=== PATIENT | male | born 1960 | race Caucasian/White ===

== ENCOUNTER 2018-02-08 12:36 | Inpatient (IN) ==
[2018-02-08 14:05] LABS: Baso # (Auto) 0.1 th/mm3 (0.0-0.2); Baso % (Auto) 0.5 % (0.0-2.0); Eos % (Auto) 0.3 % (0.0-4.0); Hematocrit 50.5 % (39.0-51.0); Hemoglobin 16.7 gm/dL (13.0-17.0); Lymph % (Auto) 7.8 % (9.0-44.0); Mean Corpuscular HGB Conc 33.2 % (32.0-36.0); Mean Corpuscular Hemoglobin 30.9 pg (27.0-34.0); Mean Corpuscular Volume 93.2 fL (80.0-100.0); Mean Platelet Volume 10.7 fL (7.0-11.0); Mono # (Auto) 1.6 th/mm3 (0.0-0.9); Mono % (Auto) 12.1 % (0.0-8.0); Neut # (Auto) 10.2 th/mm3 (1.8-7.7); Neut % (Auto) 79.3 % (16.0-70.0); Platelet Count 227 th/mm3 (150-450); Red Blood Count 5.42 mil/mm3 (4.50-5.90); Red Cell Distribution Width 13.7 % (11.6-17.2); White Blood Count 12.9 th/mm3 (4.0-11.0)
--- NOTE | 2018-02-08 14:15 | XR ---
EXAM DATE: 02/08/2018 2:02 PM EST AGE/SEX: 58 years / Male INDICATIONS: COPD. Short of breath. CLINICAL DATA: This is the patient's initial encounter. Patient reports that signs and symptoms have been present for 1 week and indicates a pain score of 0/10. MEDICAL/SURGICAL HISTORY: . Chronic obstructive pulmonary disease. Hypertension. Congestive hea rt failure. None. [place] [facility] [place] . FINDINGS: Hyperinflation of the lungs is noted consistent with emphysematous changes. No acute focal pulmonary infiltrate or pulmonary vascular congestion is noted. The heart and mediastinal structures are normal . CONCLUSION: 1. Stable hyperinflation of the lungs consistent with emphysematous changes. 2. No acute cardiopulmonary disease. Electronically signed by: José Miguel Caceres MD 02/08/2018 2:13 PM EST
--- NOTE | 2018-02-08 14:23 | ED ---
HPI General Chief Complaint: Shortness of Breath/Dyspnea Stated Complaint: Respitory Time Seen by Provider: 02/08/18 12:47 Source: patient Mode of arrival: EMS Limitations: no limitations History of Present Illness Mr Curtis is a 58 year old male who presents to the ED via [facility] for worsening SOB and a productive cough for 1 week. The patient is HIV+ diagnosed 20 years ago but does not know his CD4 count or viral load. He states that he has COPD and is always slightly SOB but this week he has used his nebulizer TID rather than qD and it has not been relieving his symptoms. The cough produces a thick yellow sputum that is abnormal for the patient, and coughing fits increase his SOB. He states that he does have occasional wheezing and intermittent left sided chest pain over his last 3 ribs that is worse with palpation. He states he took his temperature 2 days ago and it was 101 degrees F orally, and on the same day he states that he hallucinated and saw lights and waves [place] the [place]. He denies all drug use except for marijuana 5-6 times per week. He states he hallucinated once before many years ago and he was ill during that episode as well. The patient denies hemoptysis, headache, syncope, dizziness, rhinorrhea, sneezing, diarrhea, constipation, or abdominal pain. His PMH is significant for HIV, COPD, CVA, and an unknown cardiac problem. He smokes 1 pack of cigarettes per day and denies alcohol use. Pain is 3 out of 10 with deep breaths. MD Complaint: Reports shortness of breath and cough Onset (ago): day(s) Related Data Home Medications Medication Instructions Recorded Confirmed albuterol sulfate [Ventolin HFA] 2 puff INHALATION Q4-6H PRN 02/08/18 02/08/18 amoxicillin 500 mg PO TID 02/08/18 baclofen 20 mg PO DAILY 02/08/18 02/08/18 budesonide-formoterol [Symbicort] 2 puff INHALATION BID 02/08/18 02/08/18 hydrocodone-acetaminophen [[place]] 1 tab PO BID PRN 02/08/18 02/08/18 montelukast 10 mg PO QPM 02/08/18 02/08/18 Allergies Allergy/AdvReac Type Severity Reaction Status Date / Time penicillin G Allergy Unknown Nausea/Vomi Verified 02/08/18 12:52 ting Review of Systems ROS: all other systems reviewed are negative [facility] Medical History Medical History COPD (chronic obstructive pulmonary disease) (Acute) CVA (cerebral vascular accident) (Acute) HIV (human immunodeficiency virus infection) (Acute) Tobacco abuse (Acute) Family History Family History Other Family history not known due to adoption Social History Social History Substance History: Active Abuse Smoking Status: Current every day smoker Tobacco Type: Cigarettes How Often Do You Have a Drink Containing Alcohol: Never Recent Travel in [facility] within the Last 8 Weeks: No Recent Out of Country Travel within the Last 8 Weeks: No Substance Abuse Detail Marijuana: Substance Use Status: Active Route Used Substance Abuse: Inhalation Immunization History Tetanus Immunization: Unsure Exam Narrative Exam Narrative: GENERAL: Patient is a very thin male who appears in moderate respiratory distress. SKIN: Warm and dry. HEAD: Atraumatic. Normocephalic. EYES: Pupils equal and round. No scleral icterus. No injection or drainage. ENT: No nasal bleeding or discharge. White film covering the tongue and buccal mucosa that was not able to be removed via tongue depressor. NECK: Trachea midline. No JVD. CARDIOVASCULAR: Tachycardic and regular rhythm. Pain with palpation over the left side of the chest, specifically over the last 3 ribs. RESPIRATORY: No accessory muscle use. Rhonchi and rales heard bilaterally. Diminished lung sounds on the left. GASTROINTESTINAL: Abdomen soft, non-tender, nondistended. Hepatic and splenic margins not palpable. MUSCULOSKELETAL: Extremities without clubbing, cyanosis, or edema. No obvious deformities. Full ROM in upper and lower extremities. 2+ pulses in upper and lower extremities bilaterally. NEUROLOGICAL: Awake and alert. No obvious cranial nerve deficits. Motor grossly within normal limits. Five out of 5 muscle strength in the arms and legs. Normal speech. PSYCHIATRIC: Appropriate mood and affect; insight and judgment normal. Course Initial Documented Vital Signs Pulse Rate 82 02/08/18 12:43 Respiratory Rate 28 H 02/08/18 12:43 Pulse Oximetry 100 02/08/18 12:43 Last Documented Vital Signs Temperature 98.0 F 02/08/18 12:54 Pulse Rate 109 H 02/08/18 17:15 Respiratory Rate 30 H 02/08/18 17:01 Blood Pressure 109/89 02/08/18 16:06 Pulse Oximetry 100 02/08/18 17:01 Medical Decision Making ASHOK Attestation ASHOK supervised visit: Yes Attestation: I, Dr. Coker, have reviewed the advance practice practitioner's documentation and am in agreement, met with the patient face to face, made the diagnosis, and the medical decision making was done by me. *My assessment and Findings: The patient was receiving a breathing treatment when I saw him. He had fair air movement. See Leigh Hamilton note for a more detailed H&P, final diagnosis and disposition MDM Narrative Medical decision making narrative: 58-year-old male that presents to the ED for evaluation of shortness of breath. Patient was properly examined and was found to have signs and symptoms consistent appears to be likely COPD exacerbation with possible pneumonia. He has a significant history of HIV and unclear as to why he does not take any medications for it. He does not know his CD4 count or his viral count but per patient his primary care doctor does note that he has HIV. He does have a significant history of COPD. He also appears to have oral candidiasis. Labs and imaging were ordered. Patient was given 3 breathing treatments and Solu-Medrol as well as Ativan as patient started to become very anxious. Labs and imaging were essentially unremarkable other than what appears to be positive troponin, positive d-dimer. CTA was ordered and CTA did not show any sign of PE but did show what appears to be early pneumonia. Not better. Still sounds very wheezy at this time patient was started on ceftriaxone and azithromycin IV. Recommendation at this time is admission as patient still whezzing. Discussed case with Dr Winkler who agrees to admission to her service. Medical Screen Exam Complete: Yes Emergency Medical Condition: Yes Differential Diagnosis Differential Diagnosis: COPD exacerbation vs pneumonia vs oral candidiasis vs URI vs PE vs ACS Medical Records Medical records reviewed: Yes I reviewed the patient's medical records. Lab Data Lab results reviewed: Yes I reviewed the patient's lab results. Result diagrams: 02/08/18 13:27 02/08/18 13:27 Lab Results 02/08/18 02/08/18 02/08/18 Range/Units 13:27 13:27 13:27 WBC 12.9 H (4.0-11.0) th/mm3 RBC 5.42 (4.50-5.90) mil/mm3 Hgb 16.7 (13.0-17.0) gm/dL Hct 50.5 (39.0-51.0) % MCV 93.2 (80.0-100.0) fL MCH 30.9 (27.0-34.0) pg MCHC 33.2 (32.0-36.0) % RDW 13.7 (11.6-17.2) % Plt Count 227 (150-450) th/mm3 MPV 10.7 (7.0-11.0) fL Neut % (Auto) 79.3 H (16.0-70.0) % Lymph % (Auto) 7.8 L (9.0-44.0) % [place] % (Auto) 12.1 H (0.0-8.0) % Eos % (Auto) 0.3 (0.0-4.0) % Baso % (Auto) 0.5 (0.0-2.0) % Neut # (Auto) 10.2 H (1.8-7.7) th/mm3 Lymph # (Auto) 1.0 (1.0-4.8) th/mm3 [place] # (Auto) 1.6 H (0.0-0.9) th/mm3 Eos # (Auto) 0.0 (0.0-0.4) th/mm3 Baso # (Auto) 0.1 (0.0-0.2) th/mm3 WBC Differential . Differential Comment Auto diff final D-Dimer Quant (PE/DVT) (0.00-0.50) mg/L FEU Puncture Site Patient Temperature O2 Saturation (90-100) % ABG pH (7.380-7.420) ABG pCO2 (38-42) mmHg ABG pO2 (61-120) mmHg ABG HCO3 (22-26) mmol/L ABG O2 Content (12.0-20.0) Vol % ABG Base Excess (-2-2) mmol/L ABG Methemoglobin (0-2) % Noe Test Hemoglobin (12.0-16.0) G/DL Carboxyhemoglobin (0-4) % O2 Delivery Device Liter Flow L/M Critical Value Sodium 137 (136-145) meq/L Potassium 4.1 (3.5-5.1) meq/L Chloride 100 (98-107) meq/L Carbon Dioxide 27.4 (21.0-32.0) meq/L Anion Gap 10 (5-15) meq/L BUN 16 (7-18) mg/dL Creatinine 0.73 (0.60-1.30) mg/dL Estimated GFR Greater than 89 (>89) mL/min Random Glucose 92 (74-106) mg/dL Lactic Acid 1.9 (0.4-2.0) mmol/L Calcium 7.8 L (8.5-10.1) mg/dL Magnesium 2.1 (1.5-2.5) mg/dL Total Bilirubin 0.8 (0.2-1.0) mg/dL AST 57 H (15-37) U/L ALT 33 (12-78) U/L Alkaline Phosphatase 104 (45-117) U/L Troponin I 0.06 H (0.02-0.05) ng/mL B-Natriuretic Peptide (0-100) pg/mL Total Protein 7.1 (6.4-8.2) g/dL Albumin 3.1 L (3.4-5.0) g/dL 02/08/18 02/08/18 02/08/18 Range/Units 13:27 14:00 16:30 WBC (4.0-11.0) th/mm3 RBC (4.50-5.90) mil/mm3 Hgb (13.0-17.0) gm/dL Hct (39.0-51.0) % MCV (80.0-100.0) fL MCH (27.0-34.0) pg MCHC (32.0-36.0) % RDW (11.6-17.2) % Plt Count (150-450) th/mm3 MPV (7.0-11.0) fL Neut % (Auto) (16.0-70.0) % Lymph % (Auto) (9.0-44.0) % [place] % (Auto) (0.0-8.0) % Eos % (Auto) (0.0-4.0) % Baso % (Auto) (0.0-2.0) % Neut # (Auto) (1.8-7.7) th/mm3 Lymph # (Auto) (1.0-4.8) th/mm3 [place] # (Auto) (0.0-0.9) th/mm3 Eos # (Auto) (0.0-0.4) th/mm3 Baso # (Auto) (0.0-0.2) th/mm3 WBC Differential Differential Comment D-Dimer Quant (PE/DVT) 0.80 H (0.00-0.50) mg/L FEU Puncture Site Patient Temperature O2 Saturation (90-100) % ABG pH (7.380-7.420) ABG pCO2 (38-42) mmHg ABG pO2 (61-120) mmHg ABG HCO3 (22-26) mmol/L ABG O2 Content (12.0-20.0) Vol % ABG Base Excess (-2-2) mmol/L ABG Methemoglobin (0-2) % Noe Test Hemoglobin (12.0-16.0) G/DL Carboxyhemoglobin (0-4) % O2 Delivery Device Liter Flow L/M Critical Value Sodium (136-145) meq/L Potassium (3.5-5.1) meq/L Chloride (98-107) meq/L Carbon Dioxide (21.0-32.0) meq/L Anion Gap (5-15) meq/L BUN (7-18) mg/dL Creatinine (0.60-1.30) mg/dL Estimated GFR (>89) mL/min Random Glucose (74-106) mg/dL Lactic Acid (0.4-2.0) mmol/L Calcium (8.5-10.1) mg/dL Magnesium (1.5-2.5) mg/dL Total Bilirubin (0.2-1.0) mg/dL AST (15-37) U/L ALT (12-78) U/L Alkaline Phosphatase (45-117) U/L Troponin I 0.07 H (0.02-0.05) ng/mL B-Natriuretic Peptide 45 (0-100) pg/mL Total Protein (6.4-8.2) g/dL Albumin (3.4-5.0) g/dL 02/08/18 Range/Units 16:44 WBC (4.0-11.0) th/mm3 RBC (4.50-5.90) mil/mm3 Hgb (13.0-17.0) gm/dL Hct (39.0-51.0) % MCV (80.0-100.0) fL MCH (27.0-34.0) pg MCHC (32.0-36.0) % RDW (11.6-17.2) % Plt Count (150-450) th/mm3 MPV (7.0-11.0) fL Neut % (Auto) (16.0-70.0) % Lymph % (Auto) (9.0-44.0) % [place] % (Auto) (0.0-8.0) % Eos % (Auto) (0.0-4.0) % Baso % (Auto) (0.0-2.0) % Neut # (Auto) (1.8-7.7) th/mm3 Lymph # (Auto) (1.0-4.8) th/mm3 [place] # (Auto) (0.0-0.9) th/mm3 Eos # (Auto) (0.0-0.4) th/mm3 Baso # (Auto) (0.0-0.2) th/mm3 WBC Differential Differential Comment D-Dimer Quant (PE/DVT) (0.00-0.50) mg/L FEU Puncture Site Right radial Patient Temperature 98.6 O2 Saturation 94 (90-100) % ABG pH 7.30 L (7.380-7.420) ABG pCO2 58 H* (38-42) mmHg ABG pO2 98 (61-120) mmHg ABG HCO3 28 H (22-26) mmol/L ABG O2 Content 21.7 H (12.0-20.0) Vol % ABG Base Excess 2.3 H (-2-2) mmol/L ABG Methemoglobin 0.5 (0-2) % Noe Test Present Hemoglobin 16.4 H (12.0-16.0) G/DL Carboxyhemoglobin 2.3 (0-4) % O2 Delivery Device Nasal cannula Liter Flow 4.00 L/M Critical Value Yes Sodium (136-145) meq/L Potassium (3.5-5.1) meq/L Chloride (98-107) meq/L Carbon Dioxide (21.0-32.0) meq/L Anion Gap (5-15) meq/L BUN (7-18) mg/dL Creatinine (0.60-1.30) mg/dL Estimated GFR (>89) mL/min Random Glucose (74-106) mg/dL Lactic Acid (0.4-2.0) mmol/L Calcium (8.5-10.1) mg/dL Magnesium (1.5-2.5) mg/dL Total Bilirubin (0.2-1.0) mg/dL AST (15-37) U/L ALT (12-78) U/L Alkaline Phosphatase (45-117) U/L Troponin I (0.02-0.05) ng/mL B-Natriuretic Peptide (0-100) pg/mL Total Protein (6.4-8.2) g/dL Albumin (3.4-5.0) g/dL Imaging Data Attestation: I personally reviewed and interpreted this imaging study as follows : Radiologist's impression: Chest X-Ray 02/08/18 13:09 CONCLUSION: 1. Stable hyperinflation of the lungs consistent with emphysematous changes. 2. No acute cardiopulmonary disease. Chest CTA 02/08/18 14:32 CONCLUSION: 1. No evidence of pulmonary embolism. 2. Minimal focal infiltrate within the lingula of the left upper lobe consistent with possible developing pneumonia. Clinical correlation is recommended. 3. Extensive emphysematous changes throughout both lungs. 4. Coronary artery calcifications. ECG Data Attestation: I personally reviewed and interpreted this ECG as follows: Interpretation: EKG shows sinus tachycardia rhythm with no sign of acute ischemia read by me and attending. Discharge Plan Discharge Disposition Patient Disposition: 30 Still Patient Discharge Details Diagnosis: Pneumonia, COPD exacerbation, HIV (human immunodeficiency virus infection), Nedra infection, oral Physicians Team ED Provider: Mariya Coker ED Midlevel Provider: Esteban Escalona Primary Care Provider: Primary Care Celsa Goldstein Attending Provider: Michaelle Etienne Status ED Status: Admitted Observation Patient
[2018-02-08 14:28] LABS: Alanine Aminotransferase 33 U/L (12-78); Alkaline Phosphatase 104 U/L (45-117); Total Protein 7.1 g/dL (6.4-8.2); Troponin I 0.06 ng/mL (0.02-0.05)
[2018-02-08 14:30] LABS: Albumin 3.1 g/dL (3.4-5.0); Anion Gap 10 meq/L (5-15); Aspartate Aminotransferase 57 U/L (15-37); Blood Urea Nitrogen 16 mg/dL (7-18); Calcium 7.8 mg/dL (8.5-10.1); Carbon Dioxide 27.4 meq/L (21.0-32.0); Chloride 100 meq/L (98-107); Glomerular Filtration Rate Greater Than 89 mL/min (>89); Glucose,Random 92 mg/dL (74-106); Magnesium 2.1 mg/dL (1.5-2.5); Sodium 137 meq/L (136-145)
[2018-02-08 14:32] LABS: Potassium 4.1 meq/L (3.5-5.1)
--- NOTE | 2018-02-08 16:07 | CT ---
EXAM DATE: 02/08/2018 3:59 PM EST AGE/SEX: 58 years / Male INDICATIONS: Shortness of breath. CLINICAL DATA: This is the patient's initial encounter. Patient reports that signs and symptoms have been present for 1 day and indicates a pain score of 0/10. MEDICAL/SURGICAL HISTORY: Chronic obstructive pulmonary disease. Stroke. HIV. None. RADIATION DOSE: 6.15 CTDI (mGy) COMPARISON: [facility] – [place], 05/14/2014. . TECHNIQUE: Volumetric scanning was performed using a multi-row detector CT scanner during bolus infu steve of 70 ml Omnipaque 350 (iohexol) nonionic water-soluble contrast as a single exam dose. The edith a was post processed with a variety of visualization algorithms including full volume maximum intensi ty projection and sliding thin slab reformation. Using automated exposure control and adjustment of t he mA and/or kV according to patient size, radiation dose was kept as low as reasonably achievable to obtain optimal diagnostic quality images. DICOM format image data is available electronically for r eview and comparison. FINDINGS: Pulmonary Arteries: No filling defects are seen in the pulmonary arteries out to the subsegmental ve ssels. The left and right pulmonary arteries are normal in diameter. Lung: Extensive emphysematous changes are again noted. Minimal focal infiltrate is noted within the lingula of the left upper lobe consistent with possible developing pneumonia. Clinical correlation is recommended. Effusion: None. Mediastinum: No evidence of mediastinal or hilar adenopathy. Coronary artery calcifications are note d. Other: The axilla is unremarkable. CONCLUSION: 1. No evidence of pulmonary embolism. 2. Minimal focal infiltrate within the lingula of the left upper lobe consistent with possible devel oping pneumonia. Clinical correlation is recommended. 3. Extensive emphysematous changes throughout both lungs. 4. Coronary artery calcifications. Electronically signed by: José Miguel Caceres MD 02/08/2018 4:06 PM EST
[2018-02-08] MEDS ORDERED: Azithromycin Inj 500 MG in Sodium Chlor 0.9% Inj 250 ML IV.SIG ONE (16:09)
[2018-02-08] MEDS ORDERED: Bisacodyl 10 MG Supp RECTAL PRN (16:32)
[2018-02-08] MEDS ORDERED: Acetaminophen 325 MG Tablet PO PRN (16:32)
--- NOTE | 2018-02-08 16:39 | P.HPIM ---
History of Present Illness Primary Care Physician: No Primary Care Physician History of Present Illness: 58 year old male with history of COPD, HIV, tobacco abuse, and chronic back pain presenting with worsening shortness of breath and productive cough for the past 10-12 days. He reports using his nebulizer at least three times a day during this time with no improvement. His sputum is thick and yellow and he denies hemoptysis. He endorses some chills and a 10 lb weight loss in the last two weeks which he attributes to decreased appetite. He endorses a fever with Tmax 101. He denies abdominal pain, nausea, vomiting, diarrhea, edema, palpitations, syncope, or dysuria. He endorses left-sided chest pain around his lateral ribs that he attributes to coughing so much. He has not received a flu vaccine. He was intubated in 2014 for respiratory failure and pneumonia. The patient reports he has not been on any medication for HIV for at least 10 years. He is unaware of why he hasn't been on any medications. He has no idea what his last CD4 count was. Review of the EMR reveals patient with history of severe cardiomyopathy with EF 15-20% back in 2016. He had been on a beta dory and an ciaran-inhibitor but somewhere along the way these medications fell off his list. He follows with a PCP in [place] but lives in [place]. PMH: COPD, tobacco abuse, cardiomyopathy, HIV Surgical Hx: none Family Hx: adopted, doesn't know family history Social Hx: lives with six other people in an apartment, smokes 1PPD for at least 40 years, quit drinking about 6 months ago and states prior was drinking heavily, smokes marijuana 5-6 x/week - Diagnosis (1) Pneumonia (2) COPD exacerbation (3) Hypercapnic respiratory failure Inpatient Certification: I certify that the inpatient services were ordered in accordance with Medicare regulations governing the order. 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 - Medical / Surgical Hx Neg / Unobtainable Surgical History: No Previous Surgery - Medical History Medical History: Medical History (Last Updated 02/08/18 @ 17:09 by Michaelle Etienne MD) COPD (chronic obstructive pulmonary disease) CVA (cerebral vascular accident) HIV (human immunodeficiency virus infection) Tobacco abuse - Family History Family History: Family History (Last Updated 02/08/18 @ 17:10 by Michaelle Etienne MD) Other Family history not known due to adoption - Social History I have reviewed the patient's Social History: Yes - Tobacco History Tobacco Use In Past 30 Days: Yes Smoking Status: Current every day smoker Tobacco Type: Cigarettes - Alcohol History How Often Do You Have a Drink Containing Alcohol: Never - Substance Use History Substance History: Active Abuse - Substance Use Type Marijuana Status: Active Route Used: Inhalation - Travel History Recent Travel in the [facility] Within the Last 8 Weeks: No Recent Travel Out of the Country Within the Last 8 Weeks: No - Immunization History Tetanus Immunization: Unsure Medications and Allergies Active Medications: Active Medications Acetaminophen (Tylenol) 650 mg PO Q4H PRN PRN Reason: Temp > 100.4 Al Hydroxide/Mg Hydroxide (Milk Of Magnesia Liq) 30 ml PO Q12H PRN PRN Reason: Mild Constipation Albuterol (Duoneb Neb (Meghan)) 1 ampul NEB Q4HR NEB MEGHAN Bisacodyl (Dulcolax Supp) 10 mg RECTAL DAILY PRN PRN Reason: SEVERE CONSITIPATION Ceftriaxone Sodium 1,000 mg/ (Sodium Chloride) 100 mls @ 200 mls/hr IV.SIG ONCE ONE Stop: 02/08/18 16:38 Last Infusion: 02/08/18 16:27 Dose: Infused Azithromycin 500 mg/ Sodium (Chloride) 250 mls @ 250 mls/hr IV.SIG ONCE ONE Stop: 02/08/18 17:08 Last Admin: 02/08/18 16:19 Dose: 250 mls/hr Lactulose (Lactulose Liq) 30 ml PO DAILY PRN PRN Reason: SEVERE CONSITIPATION Ondansetron HCl (Zofran Inj) 4 mg IV.PUSH Q6H PRN PRN Reason: NAUSEA OR VOMITING Senna/Docusate Sodium (Tatiana-Colace) 1 tab PO BID MEGHAN Sennosides (Senokot) 17.2 mg PO Q12H PRN PRN Reason: Moderate Constipation Allergies Allergy/AdvReac Type Severity Reaction Status Date / Time penicillin G Allergy Unknown Nausea/Vomi Verified 02/08/18 12:52 ting Home Medications Medication Instructions Recorded Confirmed Type albuterol sulfate [Ventolin HFA] 2 puff INHALATION Q4-6H PRN 02/08/18 02/08/18 History amoxicillin 500 mg PO TID 02/08/18 History baclofen 20 mg PO DAILY 02/08/18 02/08/18 History budesonide-formoterol [Symbicort] 2 puff INHALATION BID 02/08/18 02/08/18 History hydrocodone-acetaminophen [[place]] 1 tab PO BID PRN 02/08/18 02/08/18 History montelukast 10 mg PO QPM 02/08/18 02/08/18 History Exam Vital signs: Vital Signs 02/08/18 12:43 02/08/18 12:50 02/08/18 12:54 Temperature 98.0 F Pulse Rate 82 Respiratory Rate 28 H Blood Pressure 147/77 H Pulse Oximetry 100 02/08/18 13:17 02/08/18 13:27 02/08/18 13:46 Temperature Pulse Rate 117 H 121 H Respiratory Rate 18 36 H Blood Pressure Pulse Oximetry 98 02/08/18 13:47 02/08/18 14:01 02/08/18 14:02 Temperature Pulse Rate 128 H 124 H 112 H Respiratory Rate 40 H 36 H 22 Blood Pressure Pulse Oximetry 99 96 02/08/18 14:49 02/08/18 15:10 02/08/18 16:06 Temperature Pulse Rate 109 H 104 H 138 H Respiratory Rate 24 24 26 H Blood Pressure 147/63 H 117/59 L 109/89 Pulse Oximetry 100 100 99 Intake & Output 02/07/18 02/08/18 02/08/18 18:59 06:59 18:59 Intake Total 100 / 100 Balance 100 / 100 Weight 49.895 kg Intake: IV 100 / 100 Rocephin Inj 1,000 MG In NS Inj 100 / 100 100 ML @ 200 mls/hr IV.SIG ONCE ONE Rx#:[id number] Narrative: GENERAL: Cachectic, male sitting up in bed in tripod stance in obvious respiratory distress. SKIN: Warm and dry. HEENT: AT/NC. Pupils equal and round. MMM. +thrush. NECK: Supple no tender LAD or JVD. HEART: Tachycardic with no appreciable murmurs. LUNGS: Tachypneic with obvious increased work of breathing and pursed lip breathing. Tripod stance. Diffusely diminished breath sounds with end- expiratory wheezing. No appreciable crackles. ABDOMEN: Scaphoid abdomen. Soft, NT, ND. EXTREMITIES: No LE edema. 2+ pedal pulses. Calves supple and nontender. NEURO: Awake and alert. No facial droop or lid lag. Results - Labs CBC & Chem 7: 02/08/18 13:27 02/08/18 13:27 Labs: Short CBC 02/08/18 Range/Units 13:27 WBC 12.9 H (4.0-11.0) th/mm3 Hgb 16.7 (13.0-17.0) gm/dL Hct 50.5 (39.0-51.0) % Plt Count 227 (150-450) th/mm3 BMP 02/08/18 13:27 Sodium 137 Potassium 4.1 Chloride 100 Carbon Dioxide 27.4 BUN 16 Creatinine 0.73 Calcium 7.8 L Cardiac Enzymes 02/08/18 Range/Units 13:27 Troponin I 0.06 H (0.02-0.05) ng/mL Liver Function 02/08/18 Range/Units 13:27 Total Bilirubin 0.8 (0.2-1.0) mg/dL AST 57 H (15-37) U/L ALT 33 (12-78) U/L Alkaline Phosphatase 104 (45-117) U/L Albumin 3.1 L (3.4-5.0) g/dL - Imaging Impressions Chest X-Ray 02/08/18 13:09 CONCLUSION: 1. Stable hyperinflation of the lungs consistent with emphysematous changes. 2. No acute cardiopulmonary disease. Chest CTA 02/08/18 14:32 CONCLUSION: 1. No evidence of pulmonary embolism. 2. Minimal focal infiltrate within the lingula of the left upper lobe consistent with possible developing pneumonia. Clinical correlation is recommended. 3. Extensive emphysematous changes throughout both lungs. 4. Coronary artery calcifications. Caprini VTE Risk Assessment Caprini VTE Risk Assessment: Moderate/High Risk (score >= 2) Caprini Risk Assessment Model: Point Value = 1 Point Value = 2 Point Value = 3 Point Value = 5 Age 41-60 Minor surgery BMI > 25 kg/m2 Swollen legs Varicose veins or History of unexplained or recurrent spontaneous Oral contraceptives or hormone replacement Sepsis (< 1 month) Serious lung disease, including pneumonia (< 1 month) Abnormal pulmonary function Acute myocardial infarction Congestive heart failure (< 1 month) History of inflammatory bowel disease Medical patient at bed rest Age 61-74 Arthroscopic surgery Major open surgery (> 45 min) Laparoscopic surgery (> 45 min) Malignancy Confined to bed (> 72 hours) Immobilizing plaster cast Central venous access Age >= 75 History of VTE Family history of VTE Factor V Leiden Prothrombin [id number] Lupus anticoagulant Anticardiolipin antibodies Elevated serum homocysteine Heparin-induced thrombocytopenia Other congenital or acquired thrombophilia Stroke (< 1 month) Elective arthroplasty Hip, pelvis, or leg fracture Acute spinal cord injury (< 1 month) Prophylaxis Regimen: Total Risk Factor Score Risk Level Prophylaxis Regimen 0-1 Low Early ambulation 2 Moderate Order ONE of the following: *Sequential Compression Device (SCD) *Heparin 5000 units SQ BID 3-4 Higher Order ONE of the following medications: *Heparin 5000 units SQ TID *Enoxaparin/Lovenox 40 mg SQ daily (WT < 150 kg, CrCl > 30 mL/min) *Enoxaparin/Lovenox 30 mg SQ daily (WT < 150 kg, CrCl > 10-29 mL/min) *Enoxaparin/Lovenox 30 mg SQ BID (WT < 150 kg, CrCl > 30 mL/min) AND/OR *Sequential Compression Device (SCD) 5 or more Highest Order ONE of the following medications: *Heparin 5000 units SQ TID (Preferred with Epidurals) *Enoxaparin/Lovenox 40 mg SQ daily (WT < 150 kg, CrCl > 30 mL/min) *Enoxaparin/Lovenox 30 mg SQ daily (WT < 150 kg, CrCl > 10-29 mL/min) *Enoxaparin/Lovenox 30 mg SQ BID (WT < 150 kg, CrCl > 30 mL/min) AND *Sequential Compression Device (SCD) Assessment and Plan - Assessment (1) Pneumonia Code(s): J18.9 - Pneumonia, unspecified organism Status: Acute (2) COPD exacerbation Code(s): J44.1 - Chronic obstructive pulmonary disease with (acute) exacerbation Status: Acute (3) Hypercapnic respiratory failure Code(s): J96.92 - Respiratory failure, unspecified with hypercapnia Status: Acute - Plan 58 year old male with history of COPD, tobacco abuse, HIV, and cardiomyopathy admitted for COPD exacerbation, early PNA, and hypercapnic respiratory failure. 1. COPD exacerbation with hypercapnic respiratory failure - ABG with pH 7.30, pCO2 58, PO2 98, and HCO3 28 - CBC with WBC 12.9 with left shift - CXR with hyperinflated lungs and flattened diaphragms, no evidence of pneumonia (personally reviewed) - CTA done in light of elevated D-dimer showing minimal focal infiltrate within the lingular consistent with developing PNA - DuoNeb Q4H - Albuterol neb Q2H PRN - Supplemental O2 - SoluMedrol 125 mg IV x 1 now - SoluMedrol 40 mg IV Q6H - Continue home Symbicort 2. Pneumonia - CXR showing flattened diaphragms and hyperinflated lungs, no signs of consolidation - CTA done secondary to elevated D-dimer showing early pneumonia in the lingula - Given leukocytosis, productive cough, and early CT findings will treat for community-acquired PNA - Continue Rocephin and Azithromycin - Check sputum cultures - Check urine legionella and pneumococcal antigens 3. Elevated troponin - Pt with some reproducible chest pain around left ribs attributed to coughing - Troponins 0.06 and 0.07, will check a third - Troponin up to 1.13 in 2014 - EKG with sinus tachycardia - Troponins may be elevated secondary to pulmonary hypertension vs. NSTEMI - Give ASA 325 mg PO x 1 now - Daily baby ASA starting tomorrow - Start carvedilol tomorrow (hesitant to start in acute pulmonary distress) - Will hold off on cardiology consult for now as patient's pulmonary status would preclude him from an invasive procedure at this time 4. HIV - Not on any antiretrovirals for some time - Check CD4 count and viral load - May need to be on abx prophylaxis depending on CD4 count 5. Thrush - Start Nystatin swish and swallow 6. Cardiomyopathy - Last echo on file from 2015 showed EF 15-20% - Check 2D echo to guide medical therapy and need for cardiac intervention - No signs of volume overload on exam DVT prophylaxis: Lovenox Code Status: FULL Discussed Condition With: Patient Discharge Planning: D/C once respiratory status improves and on PO meds
[2018-02-08 16:49] LABS: ABG Base Excess 2.3 mmol/L (-2-2); ABG PCO2 58 mmHg (38-42); ABG PO2 98 mmHg (61-120)
[2018-02-08] MEDS ORDERED: MethylPREDNISolone Sod Succinate Inj 125 MG/2 ML Vial IV.PUSH ONE (16:54)
[2018-02-08] MEDS ORDERED: Aspirin 325 MG Tablet PO ONE (17:19)
[2018-02-08] MEDS ORDERED: MethylPREDNISolone Sod Succinate Inj 40 MG/ML Vial IV.PUSH SCH (18:00)
[2018-02-08] MEDS: Enoxaparin Inj 40 MG/0.4 ML Syringe SQ SCH (18:34)
[2018-02-08] MEDS: Montelukast 10 MG Tablet PO SCH (18:35)
[2018-02-08] MEDS: Nystatin Liq 500,000 UNIT/5 ML UDC SWISH-SWAL SCH ×2 (18:35→22:49)
[2018-02-08] MEDS: MethylPREDNISolone Sod Succinate Inj 40 MG/ML Vial IV.PUSH SCH (22:49)
[2018-02-08] MEDS: Senna/Docusate Sodium 8.6/50 MG Tablet PO SCH (22:50)
[2018-02-08] MEDS: Budesonide-Formoterol 160/4.5 MCG 6 GM Inhaler INH SCH (23:40)
[2018-02-09] MEDS: MethylPREDNISolone Sod Succinate Inj 40 MG/ML Vial IV.PUSH SCH ×4 (04:40→23:14)
[2018-02-09 06:31] LABS: Hematocrit 51.4 % (39.0-51.0); Hemoglobin 17.5 gm/dL (13.0-17.0); Lymph # (Auto) 0.4 th/mm3 (1.0-4.8); Lymph % (Auto) 4.8 % (9.0-44.0); Mean Corpuscular HGB Conc 34.1 % (32.0-36.0); Mean Corpuscular Hemoglobin 31.2 pg (27.0-34.0); Mean Corpuscular Volume 91.5 fL (80.0-100.0); Mean Platelet Volume 10.3 fL (7.0-11.0); Mono # (Auto) 0.3 th/mm3 (0.0-0.9); Mono % (Auto) 3.1 % (0.0-8.0); Neut % (Auto) 92.1 % (16.0-70.0); Platelet Count 242 th/mm3 (150-450); Red Blood Count 5.62 mil/mm3 (4.50-5.90); Red Cell Distribution Width 13.5 % (11.6-17.2); White Blood Count 8.7 th/mm3 (4.0-11.0)
[2018-02-09 06:52] LABS: Calcium 9.1 mg/dL (8.5-10.1); Carbon Dioxide 33.4 meq/L (21.0-32.0); Potassium 4.9 meq/L (3.5-5.1)
[2018-02-09] MEDS: Nystatin Liq 500,000 UNIT/5 ML UDC SWISH-SWAL SCH ×4 (08:58→21:37)
[2018-02-09] MEDS: Senna/Docusate Sodium 8.6/50 MG Tablet PO SCH ×2 (08:58→21:37)
[2018-02-09] MEDS: Budesonide-Formoterol 160/4.5 MCG 6 GM Inhaler INH SCH ×2 (09:12→21:37)
--- NOTE | 2018-02-09 09:28 | P.PN ---
Subjective Interval history: F/U PNA and COPD. States he is breathing better Physical Exam Vital signs: Vital Signs 02/08/18 12:43 02/08/18 12:50 02/08/18 12:54 Temperature 98.0 F Pulse Rate 82 Respiratory Rate 28 H Blood Pressure 147/77 H Pulse Oximetry 100 02/08/18 13:17 02/08/18 13:27 02/08/18 13:46 Temperature Pulse Rate 117 H 121 H Respiratory Rate 18 36 H Blood Pressure Pulse Oximetry 98 02/08/18 13:47 02/08/18 14:01 02/08/18 14:02 Temperature Pulse Rate 128 H 124 H 112 H Respiratory Rate 40 H 36 H 22 Blood Pressure Pulse Oximetry 99 96 02/08/18 14:49 02/08/18 15:10 02/08/18 16:06 Temperature Pulse Rate 109 H 104 H 138 H Respiratory Rate 24 24 26 H Blood Pressure 147/63 H 117/59 L 109/89 Pulse Oximetry 100 100 99 02/08/18 17:01 02/08/18 17:15 02/08/18 18:18 Temperature 97.2 F L Pulse Rate 122 H 109 H 123 H Respiratory Rate 30 H 20 Blood Pressure 160/76 H Pulse Oximetry 100 99 02/08/18 20:00 02/08/18 20:25 02/08/18 20:28 Temperature 97.6 F Pulse Rate 117 H 117 H Respiratory Rate 16 19 Blood Pressure 131/76 Pulse Oximetry 100 97 02/09/18 00:00 02/09/18 00:20 02/09/18 00:21 Temperature 97.1 F L Pulse Rate 105 H 89 Respiratory Rate 15 16 Blood Pressure 123/70 Pulse Oximetry 99 96 02/09/18 04:00 02/09/18 04:18 02/09/18 04:48 Temperature 97.3 F L Pulse Rate 99 H 96 H Respiratory Rate 16 18 Blood Pressure 135/81 Pulse Oximetry 99 99 02/09/18 08:00 02/09/18 08:57 Temperature 97.3 F L Pulse Rate 116 H 118 H Respiratory Rate 24 25 H Blood Pressure 130/74 Pulse Oximetry 100 Intake & Output 02/08/18 02/09/18 02/09/18 18:59 06:59 18:59 Intake Total 350 / 350 960 / 960 Output Total 400 / 400 Balance 350 / 350 560 / 560 Weight 49.895 kg 49 kg Intake: IV 350 / 350 Azithromycin Inj 500 MG In NS 250 / 250 Inj 250 ML @ 250 mls/hr IV.SIG ONCE ONE Rx#:[id number] Rocephin Inj 1,000 MG In NS Inj 100 / 100 100 ML @ 200 mls/hr IV.SIG ONCE ONE Rx#:[id number] Oral 960 / 960 Output: Urine 400 / 400 Other: Date of Last Bowel Movement 02/07/18 Weight On Admission 49.895 kg Narrative: GENERAL: Cachectic, male sitting up in bed in tripod stance in obvious respiratory distress. SKIN: Warm and dry. HEART: Tachycardic with no appreciable murmurs. LUNGS: Diffusely diminished breath sounds with end-expiratory wheezing. No appreciable crackles. ABDOMEN: Scaphoid abdomen. Soft, NT, ND. EXTREMITIES: No LE edema. 2+ pedal pulses. Calves supple and nontender. NEURO: Awake and alert. No facial droop or lid lag. Results - Labs CBC & Chem 7: 02/09/18 05:29 02/09/18 05:29 Laboratory Results - last 24 hr 02/08/18 02/08/18 02/08/18 13:27 13:27 13:27 WBC 12.9 H RBC 5.42 Hgb 16.7 Hct 50.5 MCV 93.2 MCH 30.9 MCHC 33.2 RDW 13.7 Plt Count 227 MPV 10.7 Neut % (Auto) 79.3 H Lymph % (Auto) 7.8 L [place] % (Auto) 12.1 H Eos % (Auto) 0.3 Baso % (Auto) 0.5 Neut # (Auto) 10.2 H Lymph # (Auto) 1.0 [place] # (Auto) 1.6 H Eos # (Auto) 0.0 Baso # (Auto) 0.1 WBC Differential . Differential Comment Auto diff final D-Dimer Quant (PE/DVT) Puncture Site Patient Temperature O2 Saturation ABG pH ABG pCO2 ABG pO2 ABG HCO3 ABG O2 Content ABG Base Excess ABG Methemoglobin Noe Test Hemoglobin Carboxyhemoglobin O2 Delivery Device Liter Flow Critical Value Sodium 137 Potassium 4.1 Chloride 100 Carbon Dioxide 27.4 Anion Gap 10 BUN 16 Creatinine 0.73 Estimated GFR Greater than 89 Random Glucose 92 Lactic Acid 1.9 Calcium 7.8 L Magnesium 2.1 Total Bilirubin 0.8 AST 57 H ALT 33 Alkaline Phosphatase 104 Troponin I 0.06 H B-Natriuretic Peptide Total Protein 7.1 Albumin 3.1 L 02/08/18 02/08/18 02/08/18 13:27 14:00 16:30 WBC RBC Hgb Hct MCV MCH MCHC RDW Plt Count MPV Neut % (Auto) Lymph % (Auto) [place] % (Auto) Eos % (Auto) Baso % (Auto) Neut # (Auto) Lymph # (Auto) [place] # (Auto) Eos # (Auto) Baso # (Auto) WBC Differential Differential Comment D-Dimer Quant (PE/DVT) 0.80 H Puncture Site Patient Temperature O2 Saturation ABG pH ABG pCO2 ABG pO2 ABG HCO3 ABG O2 Content ABG Base Excess ABG Methemoglobin Noe Test Hemoglobin Carboxyhemoglobin O2 Delivery Device Liter Flow Critical Value Sodium Potassium Chloride Carbon Dioxide Anion Gap BUN Creatinine Estimated GFR Random Glucose Lactic Acid Calcium Magnesium Total Bilirubin AST ALT Alkaline Phosphatase Troponin I 0.07 H B-Natriuretic Peptide 45 Total Protein Albumin 02/08/18 02/08/18 02/09/18 16:44 22:26 05:29 WBC RBC Hgb Hct MCV MCH MCHC RDW Plt Count MPV Neut % (Auto) Lymph % (Auto) [place] % (Auto) Eos % (Auto) Baso % (Auto) Neut # (Auto) Lymph # (Auto) [place] # (Auto) Eos # (Auto) Baso # (Auto) WBC Differential Differential Comment D-Dimer Quant (PE/DVT) Puncture Site Right radial Patient Temperature 98.6 O2 Saturation 94 ABG pH 7.30 L ABG pCO2 58 H* ABG pO2 98 ABG HCO3 28 H ABG O2 Content 21.7 H ABG Base Excess 2.3 H ABG Methemoglobin 0.5 Noe Test Present Hemoglobin 16.4 H Carboxyhemoglobin 2.3 O2 Delivery Device Nasal cannula Liter Flow 4.00 Critical Value Yes Sodium Potassium Chloride Carbon Dioxide Anion Gap BUN Creatinine Estimated GFR Random Glucose Lactic Acid Calcium Magnesium Total Bilirubin AST ALT Alkaline Phosphatase Troponin I 0.06 H 0.05 B-Natriuretic Peptide Total Protein Albumin 02/09/18 02/09/18 05:29 05:29 WBC 8.7 RBC 5.62 Hgb 17.5 H Hct 51.4 H MCV 91.5 MCH 31.2 MCHC 34.1 RDW 13.5 Plt Count 242 MPV 10.3 Neut % (Auto) 92.1 H Lymph % (Auto) 4.8 L [place] % (Auto) 3.1 Eos % (Auto) 0.0 Baso % (Auto) 0.0 Neut # (Auto) 8.0 H Lymph # (Auto) 0.4 L [place] # (Auto) 0.3 Eos # (Auto) 0.0 Baso # (Auto) 0.0 WBC Differential . Differential Comment Auto diff final D-Dimer Quant (PE/DVT) Puncture Site Patient Temperature O2 Saturation ABG pH ABG pCO2 ABG pO2 ABG HCO3 ABG O2 Content ABG Base Excess ABG Methemoglobin Noe Test Hemoglobin Carboxyhemoglobin O2 Delivery Device Liter Flow Critical Value Sodium 133 L Potassium 4.9 D Chloride 95 L Carbon Dioxide 33.4 H Anion Gap 5 BUN 21 H Creatinine 0.96 Estimated GFR 81 L Random Glucose 132 H Lactic Acid Calcium 9.1 D Magnesium Total Bilirubin AST ALT Alkaline Phosphatase Troponin I B-Natriuretic Peptide Total Protein Albumin Microbiology 02/09/18 04:27 Urine - Random Urine Streptococcus pneumoniae Antigen (M - Final Presumptive negative for streptococcus pneumoniae antigen, suggesting no current or recent infection. Infection due to Streptococcus pneumoniae cannot be ruled out since the antigen present in the sample may be below the detection limit of the test. 02/09/18 04:27 Urine - Random Urine Legionella Antigen - Final Presumptive negative for Legionella pneumophila serogroup 1 antigen in urine, suggesting no recent or recurrent infection. Infection due to Legionella cannot be ruled out since other serogroups and species may cause disease, antigen may not be present in urine in early infection, and the level of antigen present in the urine may be below the detection limit of the test. 02/08/18 13:30 Nasal Wash Influenza Types A,B Antigen - Final Negative for FLU A and B antigen Infection due to influenza A or B cannot be ruled out since the antigen present in the sample may be below the detection limit of the test. - Imaging ITS Impressions Chest X-Ray 02/08/18 13:09 CONCLUSION: 1. Stable hyperinflation of the lungs consistent with emphysematous changes. 2. No acute cardiopulmonary disease. Chest CTA 02/08/18 14:32 CONCLUSION: 1. No evidence of pulmonary embolism. 2. Minimal focal infiltrate within the lingula of the left upper lobe consistent with possible developing pneumonia. Clinical correlation is recommended. 3. Extensive emphysematous changes throughout both lungs. 4. Coronary artery calcifications. Assessment and Plan - Assessment (1) Pneumonia Code(s): J18.9 - Pneumonia, unspecified organism Status: Acute (2) COPD exacerbation Code(s): J44.1 - Chronic obstructive pulmonary disease with (acute) exacerbation Status: Acute (3) Hypercapnic respiratory failure Code(s): J96.92 - Respiratory failure, unspecified with hypercapnia Status: Acute - Plan 58 year old male with history of COPD, tobacco abuse, HIV, and cardiomyopathy admitted for COPD exacerbation, early PNA, and hypercapnic respiratory failure. 1. COPD exacerbation with hypercapnic respiratory failure - ABG with pH 7.30, pCO2 58, PO2 98, and HCO3 28 - CBC with WBC 12.9 with left shift - CXR with hyperinflated lungs and flattened diaphragms, no evidence of pneumonia (personally reviewed) - CTA done in light of elevated D-dimer showing minimal focal infiltrate within the lingular consistent with developing PNA - DuoNeb Q4H - Albuterol neb Q2H PRN - Supplemental O2 - SoluMedrol 125 mg IV x 1 now - SoluMedrol 40 mg IV Q6H - Continue home Symbicort -BiPAP as needed 2. Pneumonia with sepsis - CXR showing flattened diaphragms and hyperinflated lungs, no signs of consolidation - CTA done secondary to elevated D-dimer showing early pneumonia in the lingula - Given leukocytosis, productive cough, and early CT findings will treat for community-acquired PNA - Continue Rocephin and Azithromycin - Check sputum and blood cultures - Neg urine legionella and pneumococcal antigens 3. Elevated troponin - Pt with some reproducible chest pain around left ribs attributed to coughing - Troponins 0.06 and 0.07 and 0.05 - Troponin up to 1.13 in 2015 - EKG with sinus tachycardia - Troponins may be elevated secondary to pulmonary hypertension vs. NSTEMI - Give ASA 325 mg PO x 1 now - Daily baby ASA - Continue current - Will hold off on cardiology consult for now as patient's pulmonary status would preclude him from an invasive procedure at this time 4. HIV - Not on any antiretrovirals for some time - Check CD4 count and viral load - May need to be on abx prophylaxis depending on CD4 count 5. Thrush - Ct Nystatin swish and swallow for 2 weeks 6. Cardiomyopathy - Last echo on file from 2015 showed EF 15-20% - Check 2D echo to guide medical therapy and need for cardiac intervention - No signs of volume overload on exam DVT prophylaxis: Lovenox
--- NOTE | 2018-02-09 14:25 | P.DIET ---
Nutritional Evaluation Type of nutrition evaluation: initial Nutrition screening: Weight Loss > 10 lbs Subjective Subjective Comments: Pt reports a 10lb wt loss over the last 2 weeks r/t poor appetite. Pt also states he has not taken his HIV meds for a long time. Objective - Diagnosis Hypercapnic Respiratory Failure, PNA, COPD Exacerbation - Objective % IBW: 65 (166 lbs) Body Weight Used for Calculations: Actual (49kg) Energy Needs - Lower Range (kCal/kg): 40 Energy Needs - Upper Range (kCal/kg): 45 Lower Limit kCal/kg (kCals): 1,960 Upper Limit kCal/kg (kCals): 2,205 Lower Limit Protein Factor (Grams per Kg): 1.3 Upper Limit Protein Factor (Grams per Kg): 1.8 Lower Protein Needs (Protein): 64 Upper Protein Needs (Protein): 88 Dietitian Reviewed in Medical Record: Current diet, Curent medications, Intake & Output, Labs, Medical history Diet Order: Cardiac Objective Comments: PMH: COPD, CVA, HIV, chronic back pain, tobacco abuse Assessment Assessment: Pt at high nutritional risk r/t dx, recent wt loss. Pt is extremely underweight at only 65% of his ideal body weight with a BMI of 15.5. Pt admitted in respiratory distress, currently on O2 mask. Noted pt positive for HIV but has not taken his antiretrovirals for a long time. Pt's nutritional needs as assessed above. Adquate PO intake has not yet been established. Will provide pt with Enlive TID, each bottle provides 350kcals and 20gms protein. Will monitor PO intake, clinical course. Recommendations: Cardiac diet Will add Enlive TID Dietitian following Dietitian to Monitor: Lab values, Supplement acceptance, Intake & Output, Diet tolerance, Weight change, PO Intake, Medical course
[2018-02-09] MEDS ORDERED: Azithromycin Inj 500 MG in Sodium Chlor 0.9% Inj 250 ML IV.SIG ONE (16:00)
--- NOTE | 2018-02-09 17:40 | P.CONCC ---
History of Present Illness Service: Critical care Consult date: 02/09/18 Requesting Physician: Saleem Mojica Reason for Consult: Acute hypercapneic respiratory failure Primary Care Provider: No Primary Care Physician Chief Complaint: Severe SOB History of Present Illness: 58 year old male with history of COPD, HIV, tobacco abuse, cardiomyopathy EF 15-20%, and chronic back pain who was admitted to the hospitalist service with COPD exacerbation and early pneumonia. He presented with shortness of breath and productive cough for the past 2 weeks. Patient was admitted with IV steroids DuoNeb nebulizer and antibiotics with Rocephin. Influenza and Legionella tests were negative. Over the last 24 hours patient continued to deteriorate and remained tachycardic. For worsening hypercapnic respiratory failure and COPD exacerbation patient was transferred to the unit and critical care medicine was consulted. He was intubated in 2014 for respiratory failure and pneumonia. He has been noncompliant with HIV meds for last 10 years, he does not know his CD4 count I evaluated the patient in the ICU. Patient is in severe shortness of breath. He is able to talk a few words, and request that he not be intubated unless life or . He wants to be a full code and will permit intubation as a " last resort". His exam reveals severe bilateral wheezing and crackles. CT of the chest shows severe emphysema and focal left upper lobe infiltrate. I will continue IV steroids and breathing treatments, DC Rocephin start cefepime 2 g IV every 8 hours. Add Levaquin for atypical coverage. Send induce sputum for PCP pneumonia. ABG STAT shows worsening hypercapnic respiratory failure pH 7.28 PCO2 73.3 PO2 33.6. 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 - Medical History Medical History: Medical History (Last Updated 02/09/18 @ 17:47 by Maude Davis MD) COPD (chronic obstructive pulmonary disease) CVA (cerebral vascular accident) Cardiomyopathy HIV (human immunodeficiency virus infection) Tobacco abuse - Family History Family History: Family History (Last Reviewed 02/09/18 @ 17:47 by Maude Davis MD) Other Family history not known due to adoption - Social History I have reviewed the patient's Social History: Yes - Tobacco History Second Hand Smoke Exposure: Yes Tobacco Use In Past 30 Days: Yes Smoking Status: Current every day smoker Tobacco Type: Cigarettes - Alcohol History How Often Do You Have a Drink Containing Alcohol: Never - Substance Use History Substance History: Active Abuse - Substance Use Type Marijuana Type: marijuana Status: Active Route Used: Inhalation Frequency: 5 times per week Reason for Use: Calm Down, Feels Good, Get High, Sleep, Socialization Comment: uses it for PTSD - Travel History Recent Travel in the [place] Within the Last 8 Weeks: No Recent Travel Out of the Country Within the Last 8 Weeks: No - Immunization History Tetanus Immunization: Unsure Hx Influenza Vaccine This Season: No Medications and Allergies Active Medications: Active Medications Acetaminophen (Tylenol) 650 mg PO Q4H PRN PRN Reason: Temp > 100.4 Al Hydroxide/Mg Hydroxide (Milk Of Kelvin Gibson) 30 ml PO Q12H PRN PRN Reason: Mild Constipation Albuterol (Duoneb Neb (Meghan)) 1 ampul NEB Q4HR NEB [facility] Last Admin: 02/09/18 14:47 Dose: 1 ampul Albuterol (Albuterol Neb (Prn)) 2.5 mg NEB Q2HR NEB PRN PRN Reason: SHORTNESS OF BREATH Last Admin: 02/09/18 17:00 Dose: 2.5 mg Aspirin (Ecotrin) 81 mg PO DAILY [facility] Last Admin: 02/09/18 08:58 Dose: 81 mg Baclofen (Lioresal) 20 mg PO DAILY [facility] Last Admin: 02/09/18 09:29 Dose: 20 mg Bisacodyl (Dulcolax Supp) 10 mg RECTAL DAILY PRN PRN Reason: SEVERE CONSITIPATION Budesonide/Formoterol Fumarate (Symbicort 160/4.5 Mcg Inh) 2 puff INH BID [facility] Last Admin: 02/09/18 09:12 Dose: 2 puff Carvedilol (Coreg) 3.125 mg PO BID [facility] Last Admin: 02/09/18 08:58 Dose: 3.125 mg Enalaprilat (Vasotec Inj) 1.25 mg IV.PUSH Q6H PRN PRN Reason: SBP>160, DBP>90 Enoxaparin Sodium (Lovenox Inj) 40 mg SQ Q24H [facility] Last Admin: 02/08/18 18:34 Dose: 40 mg Cefepime HCl 2,000 mg/ Sodium (Chloride) 100 mls @ 200 mls/hr IV.SIG Q8H [facility] Lactulose (Lactulose Liq) 30 ml PO DAILY PRN PRN Reason: SEVERE CONSITIPATION Methylprednisolone Sodium Succinate (Solumedrol Inj) 40 mg IV.PUSH Q6H [facility] Last Admin: 02/09/18 17:14 Dose: 40 mg Montelukast Sodium (Singulair) 10 mg PO QPM [facility] Last Admin: 02/08/18 18:35 Dose: 10 mg Nystatin (Mycostatin Liq) 5 ml SWISH-SWAL QID [facility] Stop: 02/22/18 17:59 Last Admin: 02/09/18 12:58 Dose: 5 ml Ondansetron HCl (Zofran Inj) 4 mg IV.PUSH Q6H PRN PRN Reason: NAUSEA OR VOMITING Senna/Docusate Sodium (Tatiana-Colace) 1 tab PO BID [facility] Last Admin: 02/09/18 08:58 Dose: 1 tab Sennosides (Senokot) 17.2 mg PO Q12H PRN PRN Reason: Moderate Constipation Sodium Chloride (Ns Flush) 2 ml IV.FLUSH BID [facility] Last Admin: 02/09/18 08:59 Dose: 2 ml Sodium Chloride (Ns Flush) 2 ml IV.FLUSH PRN PRN PRN Reason: FLUSH AFTER USING IV ACCESS Allergies Allergy/AdvReac Type Severity Reaction Status Date / Time penicillin G Allergy Unknown Nausea/Vomi Verified 02/08/18 12:52 ting Home Medications Medication Instructions Recorded Confirmed Type albuterol sulfate [Ventolin HFA] 2 puff INHALATION Q4-6H PRN 02/08/18 02/08/18 History amoxicillin 500 mg PO TID 02/08/18 History baclofen 20 mg PO DAILY 02/08/18 02/08/18 History budesonide-formoterol [Symbicort] 2 puff INHALATION BID 02/08/18 02/08/18 History hydrocodone-acetaminophen [Traphill] 1 tab PO BID PRN 02/08/18 02/08/18 History montelukast 10 mg PO QPM 02/08/18 02/08/18 History Physical Exam Vital signs: Vital Signs 02/08/18 18:18 02/08/18 20:00 02/08/18 20:25 Temperature 97.2 F L 97.6 F Pulse Rate 123 H 117 H Respiratory Rate 20 16 Blood Pressure 160/76 H 131/76 Pulse Oximetry 99 100 97 02/08/18 20:28 02/09/18 00:00 02/09/18 00:20 Temperature 97.1 F L Pulse Rate 117 H 105 H 89 Respiratory Rate 19 15 16 Blood Pressure 123/70 Pulse Oximetry 99 02/09/18 00:21 02/09/18 04:00 02/09/18 04:18 Temperature 97.3 F L Pulse Rate 99 H Respiratory Rate 16 Blood Pressure 135/81 Pulse Oximetry 96 99 99 02/09/18 04:48 02/09/18 08:00 02/09/18 08:57 Temperature 97.3 F L Pulse Rate 96 H 116 H 118 H Respiratory Rate 18 24 25 H Blood Pressure 130/74 Pulse Oximetry 100 02/09/18 12:00 02/09/18 14:46 02/09/18 14:47 Temperature 98.6 F Pulse Rate 111 H 111 H Respiratory Rate 24 22 Blood Pressure 136/95 H Pulse Oximetry 94 L 98 02/09/18 16:00 02/09/18 17:03 Temperature 98.1 F Pulse Rate 106 H 120 H Respiratory Rate 24 26 H Blood Pressure 141/75 H Pulse Oximetry 99 Intake & Output 02/08/18 02/09/18 02/09/18 18:59 06:59 18:59 Intake Total 350 / 350 960 / 960 100 / 100 Output Total 400 / 400 Balance 350 / 350 560 / 560 100 / 100 Weight 49.895 kg 49 kg Intake: IV 350 / 350 100 / 100 Azithromycin Inj 500 MG In NS 250 / 250 Inj 250 ML @ 250 mls/hr IV.SIG ONCE ONE Rx#:[id number] Rocephin Inj 1,000 MG In NS Inj 100 / 100 100 / 100 100 ML @ 200 mls/hr IV.SIG Q24H [facility] Rx#:[id number] Oral 960 / 960 Output: Urine 400 / 400 Other: Date of Last Bowel Movement 02/07/18 02/07/18 Weight On Admission 49.895 kg Narrative: GENERAL: Severely cachectic malnourished , sitting up in bed in tripod position due to shortness of breath. In moderate to severe distress SKIN: Warm and dry. HEART: Tachycardic with no appreciable murmurs. LUNGS: Air entry markedly diminished bilaterally with end-expiratory wheezing. Few bilateral basilar crackles ABDOMEN: Abdomen soft nontender EXTREMITIES: No LE edema. 2+ pedal pulses. NEURO: Awake and alert. Muscle strength appears normal. Cachectic. Follows commands Septic Shock Reassessment Septic shock perfusion: reassessment completed Assessment and Plan - Assessment and Plan Plan: NEURO: -Minimize sedation. -Place on as needed Lortab if needed for pain control RESP: Acute hypercapnic respiratory failure Acute COPD exacerbation Left upper lobe pneumonia Severe emphysema -BiPAP 02/12. Repeat ABG in 2 hours -DuoNeb every 4 hours scheduled and as needed -Repeat sputum culture with PCP staining -Continue IV steroids Solu-Medrol 40 mg every 8 hours -Continue Symbicort and add Spiriva -Broad-spectrum antibiotics as below CV: Severe cardiomyopathy ejection fraction 15-20% -No evidence of decompensated heart failure at this time -We will place patient on Aldactone 25 twice daily, lisinopril 2.5 mg daily -Hold Coreg and restart once COPD exacerbation is resolved GI: -N.p.o except meds, IV famotidine : -Monitor renal function closely. ID: Sepsis Left upper lobe community-acquired pneumonia -Antibiotics with cefepime and Levaquin -Follow-up blood urine and sputum cultures -Check induced sputum for PCP, check LDH -CD4 cell count is pending at this time -Add MAC/PCP prophylaxis as appropriate HEME: -Monitor CBC, coags ENDO: -Electrolyte replacement per protocol PROPH: -Bilateral lower extremity SCDs. Lovenox/famotidine LINES: -Utilize peripheral IVs, central line if needed CC time 38 min Code Status: Full Discussed Condition With: Dr. Mojica, bedside RN and patient
[2018-02-09 17:52] LABS: ABG Base Excess 7.3 mmol/L (-2-2); ABG PCO2 73 mmHg (38-42); ABG PO2 336 mmHG (61-120)
[2018-02-09] MEDS: Enoxaparin Inj 40 MG/0.4 ML Syringe SQ SCH (18:06)
[2018-02-09] MEDS: Montelukast 10 MG Tablet PO SCH (18:06)
[2018-02-09] MEDS: Spironolactone 25 MG Tablet PO SCH (18:06)
--- NOTE | 2018-02-09 18:46 | XR ---
EXAM DATE: 02/09/2018 6:43 PM EST AGE/SEX: 58 years / Male INDICATIONS: Respiratory disease. CLINICAL DATA: This is the patient's initial encounter. Patient reports that signs and symptoms have been present for 1 week and indicates a pain score of 0/10. MEDICAL/SURGICAL HISTORY: . Chronic obstructive pulmonary disease. Hypertension. Congestive hea rt failure. None. . COMPARISON: [facility] [place], CHEST 1V SINGLE AP, 02/08/2018. . FINDINGS: Hyperinflation of the lungs is again noted. Minimal streakiness is noted within the right lower lung field consistent with possible developing infiltrate and/or atelectasis. The heart is stable. CONCLUSION: 1. Minimal streakiness is noted within the right lower lung field consistent with possible developin g infiltrate and/or atelectasis. 2. Stable hyperinflation consistent with emphysematous changes. Electronically signed by: José Miguel Caceres MD 02/09/2018 6:45 PM EST
--- NOTE | 2018-02-09 20:20 | ECHRPT ---
Indication: CARDIOMYOPATHY CONCLUSIONS Normal left ventricular size. Wall thickness is normal. The left ventricular systolic function is moderately reduced with an estimated ejection fraction in the range of 40-45%. There is hypokinesis with distinct regional wall motion abnormalities. Mild thickening of the mitral valve leaflets. Moderate mitral valve regurgitation. Aortic valve sclerosis is present. There is trace tricuspid valve regurgitation. The estimated pulmonary arterial pressure is 32 mmHg. nodular calcification of the chordae tendinae attatched to the anterior leaflet of the mitral valve BP: / HR: Rhythm: MEASUREMENTS (Male / Female) Normal Values Technical Quality: 2D ECHO LV Diastolic Diameter PLAX 4.1 cm 4.2 - 5.9 / 3.9 - 5.3 cm LV Systolic Diameter PLAX 3.5 cm IVS Diastolic Thickness 0.9 cm 0.6 - 1.0 / 0.6 - 0.9 cm LVPW Diastolic Thickness 0.7 cm 0.6 - 1.0 / 0.6 - 0.9 cm LV Relative Wall Thickness 0.4 DOPPLER Mitral E Point Velocity 69.6 cm/s Mitral A Point Velocity 72.6 cm/s Mitral E to A Ratio 1.0 TR Peak Velocity 232.0 cm/s TR Peak Gradient 21.5 mmHg Right Atrial Pressure 10.0 mmHg Pulmonary Artery Systolic Pressu 31.5 mmHg Right Ventricular Systolic Press 31.5 mmHg FINDINGS LEFT VENTRICLE Normal left ventricular size. Wall thickness is normal. The left ventricular systolic function is moderately reduced with an estimated ejection fraction in the range of 40-45%. There is hypokinesis with distinct regional wall motion abnormalities. RIGHT VENTRICLE Normal right ventricular size and systolic function. LEFT ATRIUM The left atrial size is normal. RIGHT ATRIUM The right atrial size is normal. ATRIAL SEPTUM Normal atrial septal thickness without atrial level shunting by limited color doppler interrogation. AORTA The aortic root and proximal ascending aorta are normal in size on limited imaging. MITRAL VALVE Mild thickening of the mitral valve leaflets. Mild mitral valve regurgitation. AORTIC VALVE Aortic valve sclerosis is present. TRICUSPID VALVE There is trace tricuspid valve regurgitation. The estimated pulmonary arterial pressure is 32 mmHg. PULMONARY VALVE No pulmonary valve regurgitation or stenosis. VESSELS The inferior vena cava is normal in size. PERICARDIUM No pericardial effusion. Lang Lima MD, FACC, [facility] [place] (Electronically Signed) Final Date:09 February 2018 20:19
[2018-02-09] MEDS: Famotidine PF Inj 20 MG/2 ML Vial IV.PUSH SCH (21:37)
[2018-02-09 22:19] LABS: ABG Base Excess 5.9 mmol/L (-2-2); ABG PCO2 57 mmHg (38-42); ABG PO2 115 mmHG (61-120)
[2018-02-10] MEDS ORDERED: Chlorhexidine Gluconate 2% 1 Pack (2 Cloths) TOPICAL PRN (04:00)
[2018-02-10] MEDS: MethylPREDNISolone Sod Succinate Inj 40 MG/ML Vial IV.PUSH SCH ×4 (04:36→22:33)
[2018-02-10] MEDS: Chlorhexidine Gluconate 2% 1 Pack (2 Cloths) TOPICAL SCH (04:37)
[2018-02-10 05:06] LABS: Hematocrit 45.5 % (39.0-51.0); Hemoglobin 15.5 gm/dL (13.0-17.0); Mean Corpuscular HGB Conc 34.1 % (32.0-36.0); Mean Corpuscular Hemoglobin 31.3 pg (27.0-34.0); Mean Corpuscular Volume 91.9 fL (80.0-100.0); Mean Platelet Volume 9.9 fL (7.0-11.0); Platelet Count 238 th/mm3 (150-450); Red Blood Count 4.95 mil/mm3 (4.50-5.90); Red Cell Distribution Width 13.7 % (11.6-17.2); White Blood Count 12.9 th/mm3 (4.0-11.0)
[2018-02-10 05:29] LABS: Albumin 3.3 g/dL (3.4-5.0); Anion Gap 4 meq/L (5-15); Aspartate Aminotransferase 57 U/L (15-37); Blood Urea Nitrogen 23 mg/dL (7-18); Calcium 8.8 mg/dL (8.5-10.1); Carbon Dioxide 36.7 meq/L (21.0-32.0); Chloride 94 meq/L (98-107); Glomerular Filtration Rate Greater Than 89 mL/min (>89); Glucose,Random 113 mg/dL (74-106); Potassium 4.4 meq/L (3.5-5.1); Sodium 135 meq/L (136-145)
[2018-02-10 05:31] LABS: Alanine Aminotransferase 46 U/L (12-78)
[2018-02-10 05:33] LABS: Alkaline Phosphatase 98 U/L (45-117); Total Protein 7.2 g/dL (6.4-8.2)
--- NOTE | 2018-02-10 06:03 | XR ---
EXAM DATE: 02/10/2018 5:27 AM EST AGE/SEX: 58 years / Male INDICATIONS: Shortness of breath, possible pulmonary disease. CLINICAL DATA: This is the patient's subsequent encounter. Patient reports that signs and symptoms h ave been present for 1 week and indicates a pain score of Nonresponsive. MEDICAL/SURGICAL HISTORY: Chronic obstructive pulmonary disease. Hypertension. Congestive hea rt failure. None. COMPAR[place]: [facility] [place] 1[place] SINGLE AP, 02/09/[place]. . FINDINGS: A single AP view of the chest demonstrates hyperinflation of the lungs. No infiltrates or effusions. Heart is normal in size. Bony structures are unremarkable. CONCLUSION: The lungs are hyperinflated consistent with COPD. No acute infiltrate or effusion. Electronically signed by: Raphael Milan MD 02/10/2018 6:02 AM EST
--- NOTE | 2018-02-10 08:10 | P.PNCC ---
Subjective Subjective Remarks/Hospital Course: 02/10: Afebrile. No acute events overnight. Mild expiratory wheezing noted left lower lobe. Respiratory requirement significantly decreased, patient requesting a diet. Blood cultures negative growth today patient continues on cefepime. Objective Vital Signs / I&O: Vital Signs 02/09/18 08:57 02/09/18 12:00 02/09/18 14:46 Temperature 98.6 F Pulse Rate 118 H 111 H Respiratory Rate 25 H 24 Blood Pressure 136/95 H Pulse Oximetry 94 L 98 02/09/18 14:47 02/09/18 16:00 02/09/18 17:03 Temperature 98.1 F Pulse Rate 111 H 106 H 120 H Respiratory Rate 22 24 26 H Blood Pressure 141/75 H Pulse Oximetry 99 02/09/18 19:00 02/09/18 20:00 02/09/18 20:21 Temperature 98.8 F Pulse Rate 85 84 Respiratory Rate 28 H 22 Blood Pressure 116/68 101/63 Pulse Oximetry 100 100 02/09/18 20:24 02/09/18 21:00 02/09/18 22:00 Temperature 98.8 F 98.8 F Pulse Rate 94 H 78 117 H Respiratory Rate 29 H 26 H 22 Blood Pressure 117/67 122/81 Pulse Oximetry 02/09/18 22:23 02/09/18 22:25 02/09/18 23:00 Temperature Pulse Rate 101 H 103 H 83 Respiratory Rate 22 28 H 18 Blood Pressure 132/81 119/61 Pulse Oximetry 100 93 L 100 02/10/18 00:00 02/10/18 00:28 02/10/18 00:36 Temperature 98.4 F Pulse Rate 84 87 Respiratory Rate 13 20 Blood Pressure 104/63 Pulse Oximetry 100 100 100 02/10/18 01:00 02/10/18 02:00 02/10/18 02:05 Temperature Pulse Rate 72 116 H 112 H Respiratory Rate 13 27 H 23 Blood Pressure 104/62 151/84 H Pulse Oximetry 97 95 97 02/10/18 03:00 02/10/18 04:00 02/10/18 04:26 Temperature 97.9 F Pulse Rate 78 101 H 102 H Respiratory Rate 14 25 H 26 H Blood Pressure 99/58 L 128/74 Pulse Oximetry 98 97 97 02/10/18 05:00 02/10/18 06:00 02/10/18 07:00 Temperature Pulse Rate 97 H 101 H 85 Respiratory Rate 28 H 30 H 21 Blood Pressure 120/72 116/72 100/64 Pulse Oximetry 99 100 100 Intake & Output 02/09/18 02/10/18 02/10/18 18:59 06:59 18:59 Intake Total 100 / 100 250 / 250 100 / 100 Output Total 1500 / 1500 Balance 100 / 100 -1250 / -1250 100 / 100 Weight 39.9 kg Intake: IV 100 / 100 250 / 250 100 / 100 Maxipime Inj 2,000 MG In NS Inj 100 / 100 100 / 100 100 ML @ 200 mls/hr IV.SIG Q8H [facility] Rx#:[id number] Levaquin 750 mg Premix Inj 150 150 / 150 ML @ 100 mls/hr IV.SIG Q24H [facility] Rx#:[id number] Rocephin Inj 1,000 MG In NS Inj 100 / 100 100 ML @ 200 mls/hr IV.SIG Q24H [facility] Rx#:[id number] Output: Urine 1500 / 1500 Other: # Voids 4 Date of Last Bowel Movement 02/07/18 02/07/18 Result Diagrams: 02/10/18 04:15 02/10/18 04:15 Other Results: Laboratory Results WBC 12.9 th/mm3 (4.0-11.0) H 02/10/18 04:15 RBC 4.95 mil/mm3 (4.50-5.90) 02/10/18 04:15 Hgb 15.5 gm/dL (13.0-17.0) D 02/10/18 04:15 Hct 45.5 % (39.0-51.0) 02/10/18 04:15 MCV 91.9 fL (80.0-100.0) 02/10/18 04:15 MCH 31.3 pg (27.0-34.0) 02/10/18 04:15 MCHC 34.1 % (32.0-36.0) 02/10/18 04:15 RDW 13.7 % (11.6-17.2) 02/10/18 04:15 Plt Count 238 th/mm3 (150-450) 02/10/18 04:15 MPV 9.9 fL (7.0-11.0) 02/10/18 04:15 Neut % (Auto) 92.1 % (16.0-70.0) H 02/09/18 05:29 Lymph % (Auto) 4.8 % (9.0-44.0) L 02/09/18 05:29 [place] % (Auto) 3.1 % (0.0-8.0) 02/09/18 05:29 Eos % (Auto) 0.0 % (0.0-4.0) 02/09/18 05:29 Baso % (Auto) 0.0 % (0.0-2.0) 02/09/18 05:29 Neut # (Auto) 8.0 th/mm3 (1.8-7.7) H 02/09/18 05:29 Lymph # (Auto) 0.4 th/mm3 (1.0-4.8) L 02/09/18 05:29 [place] # (Auto) 0.3 th/mm3 (0.0-0.9) 02/09/18 05:29 Eos # (Auto) 0.0 th/mm3 (0.0-0.4) 02/09/18 05:29 Baso # (Auto) 0.0 th/mm3 (0.0-0.2) 02/09/18 05:29 WBC Differential . 02/09/18 05:29 Differential Comment Auto diff final 02/09/18 05:29 D-Dimer Quant (PE/DVT) 0.80 mg/L FEU (0.00-0.50) H 02/08/18 14:00 Puncture Site Left radial 02/09/18 22:06 Patient Temperature 98.6 02/09/18 22:06 O2 Saturation 96 % (90-100) 02/09/18 22:06 ABG pH 7.36 (7.380-7.420) L 02/09/18 22:06 ABG pCO2 57 mmHg (38-42) H* 02/09/18 22:06 ABG pO2 115 mmHG (61-120) 02/09/18 22:06 ABG HCO3 31 mmol/L (22-26) H 02/09/18 22:06 ABG O2 Content 21.6 Vol % (12.0-20.0) H 02/09/18 22:06 ABG Base Excess 5.9 mmol/L (-2-2) H 02/09/18 22:06 ABG Methemoglobin 1.5 % (0-2) 02/09/18 22:06 Noe Test Present 02/09/18 22:06 Hemoglobin 15.9 G/DL (12.0-16.0) 02/09/18 22:06 Carboxyhemoglobin 0.5 % (0-4) 02/09/18 22:06 O2 Delivery Device Bipap 02/09/18 22:06 Liter Flow 15.00 L/M 02/09/18 17:38 Inspired O2 35 % 02/09/18 22:06 Critical Value Yes 02/09/18 22:06 Sodium 135 meq/L (136-145) L 02/10/18 04:15 Potassium 4.4 meq/L (3.5-5.1) 02/10/18 04:15 Chloride 94 meq/L (98-107) L 02/10/18 04:15 Carbon Dioxide 36.7 meq/L (21.0-32.0) H 02/10/18 04:15 Anion Gap 4 meq/L (5-15) L 02/10/18 04:15 BUN 23 mg/dL (7-18) H 02/10/18 04:15 Creatinine 0.85 mg/dL (0.60-1.30) 02/10/18 04:15 Estimated GFR Greater than 89 mL/min (>89) 02/10/18 04:15 Random Glucose 113 mg/dL (74-106) H 02/10/18 04:15 Lactic Acid 0.9 mmol/L (0.4-2.0) 02/09/18 17:50 Calcium 8.8 mg/dL (8.5-10.1) 02/10/18 04:15 Magnesium 2.1 mg/dL (1.5-2.5) 02/08/18 13:27 Total Bilirubin 0.4 mg/dL (0.2-1.0) 02/10/18 04:15 AST 57 U/L (15-37) H 02/10/18 04:15 ALT 46 U/L (12-78) 02/10/18 04:15 Alkaline Phosphatase 98 U/L (45-117) 02/10/18 04:15 Lactate Dehydrogenase 255 U/L (87-241) H 02/09/18 05:29 Troponin I 0.05 ng/mL (0.02-0.05) 02/09/18 05:29 B-Natriuretic Peptide 45 pg/mL (0-100) 02/08/18 13:27 Total Protein 7.2 g/dL (6.4-8.2) 02/10/18 04:15 Albumin 3.3 g/dL (3.4-5.0) L 02/10/18 04:15 Nasal Screen MRSA (PCR) Not detected (Negative) 02/09/18 17:35 Impressions Chest CTA 02/08/18 14:32 CONCLUSION: 1. No evidence of pulmonary embolism. 2. Minimal focal infiltrate within the lingula of the left upper lobe consistent with possible developing pneumonia. Clinical correlation is recommended. 3. Extensive emphysematous changes throughout both lungs. 4. Coronary artery calcifications. Chest X-Ray 02/10/18 06:00 CONCLUSION: The lungs are hyperinflated consistent with COPD. No acute infiltrate or effusion. Objective Remarks: GENERAL: This is a cachectic male sitting up in bed in no acute distress, not currently on oxygen SKIN: Warm and dry. HEAD: Atraumatic. Normocephalic. EYES: Pupils equal and round. No scleral icterus. No injection or drainage. ENT: No nasal bleeding or discharge. Mucous membranes pink and moist. NECK: Trachea midline. No JVD. CARDIOVASCULAR: Normal rate, regular rhythm. RESPIRATORY: No accessory muscle use. Prolonged mild expiratory wheezing noted left lobe. Breath sounds equal bilaterally. GASTROINTESTINAL: Abdomen soft, non-tender, nondistended. No guarding. MUSCULOSKELETAL: Extremities without clubbing, cyanosis, or edema. No obvious deformities. NEUROLOGICAL: GCS 15 awake and alert. RASS 0. No gross focal/sensory deficits. Follows commands in all 4 extremities. Assessment and Plan - Assessment and Plan Plan: NEURO: -Minimize sedation. -Place on as needed Lortab if needed for pain control RESP: Acute hypercapnic respiratory failure Acute COPD exacerbation Left upper lobe pneumonia Severe emphysema -BiPAP at night -DuoNeb every 4 hours scheduled and as needed -Repeat sputum culture with PCP staining -Continue IV steroids Solu-Medrol 40 mg every 8 hours -Continue Symbicort and add Spiriva -Broad-spectrum antibiotics as below -Pulmonology consult CV: Severe cardiomyopathy ejection fraction 15-20% -No evidence of decompensated heart failure at this time -We will place patient on Aldactone 25 twice daily, lisinopril 2.5 mg daily -Resume Coeg GI: -Initiate cardiac diet : -Monitor renal function closely. ID: Sepsis Left upper lobe community-acquired pneumonia -Antibiotics with cefepime and Levaquin -Follow-up blood urine and sputum cultures -Check induced sputum for PCP, check LDH -CD4 cell count is pending at this time -Continue MAC/PCP prophylaxis as appropriate HEME: -Monitor CBC, coags ENDO: -Electrolyte replacement per protocol PROPH: -Bilateral lower extremity SCDs. Lovenox/famotidine LINES: -Utilize peripheral IVs, central line if needed Level 2 follow-up. [facility] Plan transfer to [facility] unit Code Status: Full Discussed Condition With: STUD DRIVER at bedside
[2018-02-10] MEDS: Spironolactone 25 MG Tablet PO SCH ×2 (09:41→17:25)
[2018-02-10] MEDS: Senna/Docusate Sodium 8.6/50 MG Tablet PO SCH ×2 (09:42→21:21)
[2018-02-10] MEDS: Nystatin Liq 500,000 UNIT/5 ML UDC SWISH-SWAL SCH ×4 (09:42→21:21)
[2018-02-10] MEDS: Lisinopril 5 MG Tablet PO SCH (09:42)
[2018-02-10] MEDS: Famotidine PF Inj 20 MG/2 ML Vial IV.PUSH SCH ×2 (09:43→21:21)
[2018-02-10] MEDS: Tiotropium Bromide 18 MCG/ACT Inhaler INH SCH (09:43)
[2018-02-10] MEDS: Budesonide-Formoterol 160/4.5 MCG 6 GM Inhaler INH SCH ×2 (13:24→21:21)
--- NOTE | 2018-02-10 14:33 | ECG ---
Date Performed: 02/08/2018 Time Performed: 13:26:27 PTAGE: 58 years EKG: SINUS TACHYCARDIA RIGHT ATRIAL ENLARGEMENT POSSIBLE LEFT ATRIAL ENLARGEMENT SEPTAL MYOCARDI AL INFARCTION Rate has increased since prior tracing, T waves are more prominent ABNORMAL ECG PREVIOUS TRACING : 02/26/2016 12.31 DOCTOR: Von Ellsworth Interpretating Date/Time 02/10/2018 14:32:53
--- NOTE | 2018-02-10 14:34 | ECG ---
Date Performed: 02/08/2018 Time Performed: 16:24:56 PTAGE: 58 years EKG: SINUS TACHYCARDIA WITH SHORT CA INTERVAL SEPTAL MYOCARDIAL INFARCTION ABNORMAL ECG Since th e PREVIOUS TRACING , no significant change noted PREVIOUS TRACIN02/08/18 DOCTOR: Von Ellsworth Interpretating Date/Time 02/10/2018 14:33:14
--- NOTE | 2018-02-10 16:53 | MB ---
cc: Joe Diaz MD DATE: 02/10/2018 REASON FOR CONSULTATION: Pneumonia, respiratory failure. HISTORY OF PRESENT ILLNESS: Mr. Curtis is a 58-year-old male with a known history of COPD, tobacco abuse and congestive heart failure with ejection fraction between 15% and 20% by echocardiogram. The patient is HIV positive as well; apparently has not been using his medication for HIV on regular basis. Admitted with increasing shortness of breath, cough and expectoration of whitish yellowish mucoid sputum and a CT scan of the chest revealing COPD and left upper lobe pneumonia. The patient is started on antibiotic therapy as well as bronchodilator therapy and IV steroids. He is feeling less short of breath at present. He is in intensive care. He is on oxygen via nasal cannula at this time. His respiratory failure is both hypoxic and hypercarbic. PAST MEDICAL HISTORY: 1. HIV positivity. 2. Chronic obstructive pulmonary disease. 3. Previous CVA. 4. Congestive heart failure. 5. Tobacco abuse. SOCIAL HISTORY: Long heavy smoking history as well as IV drug use. Does not drink any alcohol. FAMILY HISTORY: Noncontributory. REVIEW OF SYSTEMS: A 12-point review of systems as per HPI and past history, otherwise negative. CURRENT MEDICATIONS: Include: 1. DuoNeb. 2. Singulair. 3. Levaquin. 4. Cefepime. ALLERGIES: PENICILLIN. PHYSICAL EXAMINATION: GENERAL: Patient is , alert, sitting in bed; appears in no distress. VITAL SIGNS: Temperature 97.5, pulse 90, respirations 20, blood pressure 120/70. HEENT: Unremarkable. Eyes without icterus. NECK: Without adenopathy, thyroid enlargement. Central trachea. CHEST: Without dullness to percussion. Scattered rhonchi on auscultation. CARDIOVASCULAR: PMI not appreciated. ABDOMEN: Lax, bowel sounds audible. EXTREMITIES: No clubbing, cyanosis or edema. IMAGING: CT scan of the chest with a left upper lobe lung infiltrate. LABORATORY DATA: White count today 12.9, hemoglobin 15, hematocrit 45, platelets 239,000. ABG: pH 7.36, pCO2 of 57, pO2 of 115. Sodium 135, potassium 4.4, BUN 23, creatinine 0.8. IMPRESSION: 1. Chronic obstructive pulmonary disease exacerbation. 2. Pneumonia. 3. Human immunodeficiency virus positive. 4. Congestive heart failure. PLAN: The patient will be maintained on oxygen therapy as needed. His respiratory failure is hypoxic and hypercapnic; however, this is improved as well. Chest x-ray will be followed. ID consultation would be appropriate for now and future management. We will follow his care along with you and depending on progress, proceed further. I do thank you for asking me to partake in Mr. Curtis's care. Joe Diaz MD WWW/catarino , 04:30 PM , 04:39 PM
[2018-02-10] MEDS: Enoxaparin Inj 40 MG/0.4 ML Syringe SQ SCH (17:26)
[2018-02-10] MEDS: Montelukast 10 MG Tablet PO SCH (18:00)
[2018-02-11] MEDS: Chlorhexidine Gluconate 2% 1 Pack (2 Cloths) TOPICAL SCH (04:40)
[2018-02-11] MEDS: MethylPREDNISolone Sod Succinate Inj 40 MG/ML Vial IV.PUSH SCH ×3 (05:37→17:21)
[2018-02-11] MEDS: Spironolactone 25 MG Tablet PO SCH ×2 (08:12→17:20)
[2018-02-11] MEDS: Nystatin Liq 500,000 UNIT/5 ML UDC SWISH-SWAL SCH ×4 (08:12→20:56)
[2018-02-11] MEDS: Lisinopril 5 MG Tablet PO SCH (08:12)
[2018-02-11] MEDS: Budesonide-Formoterol 160/4.5 MCG 6 GM Inhaler INH SCH ×2 (08:13→20:57)
[2018-02-11] MEDS: Senna/Docusate Sodium 8.6/50 MG Tablet PO SCH ×2 (08:13→20:55)
[2018-02-11] MEDS: Famotidine PF Inj 20 MG/2 ML Vial IV.PUSH SCH ×2 (08:13→20:56)
[2018-02-11] MEDS: Tiotropium Bromide 18 MCG/ACT Inhaler INH SCH (08:14)
--- NOTE | 2018-02-11 15:28 | P.PN ---
Subjective Interval history: ALERT MILDLY TACHYPNEIC AT REST Physical Exam Vital signs: Vital Signs 02/10/18 16:00 02/10/18 17:00 02/10/18 18:00 Temperature Pulse Rate 95 H 101 H 120 H Respiratory Rate 16 30 H 33 H Blood Pressure 106/57 L 133/71 109/72 Pulse Oximetry 100 99 96 02/10/18 18:42 02/10/18 20:00 02/10/18 21:40 Temperature Pulse Rate 112 H Respiratory Rate 24 Blood Pressure Pulse Oximetry 97 98 02/10/18 23:00 02/10/18 23:42 02/11/18 00:00 Temperature 98.5 F 98.5 F Pulse Rate 92 H 98 H 91 H Respiratory Rate 16 18 Blood Pressure 126/83 132/91 H Pulse Oximetry 96 97 02/11/18 03:27 02/11/18 04:00 02/11/18 07:49 Temperature 98 F Pulse Rate 97 H 96 H 91 H Respiratory Rate 18 18 18 Blood Pressure 142/81 H Pulse Oximetry 100 98 02/11/18 08:00 02/11/18 11:25 02/11/18 12:00 Temperature 97.8 F 97.7 F Pulse Rate 91 H 99 H 84 Respiratory Rate 18 18 18 Blood Pressure 117/71 112/65 Pulse Oximetry 98 100 02/11/18 15:18 02/11/18 15:19 Temperature Pulse Rate 84 Respiratory Rate 18 Blood Pressure Pulse Oximetry 100 Intake & Output 02/10/18 02/11/18 02/11/18 18:59 06:59 18:59 Intake Total 450 / 450 590 / 590 100 / 100 Output Total 1400 / 1400 500 / 500 Balance -950 / -950 90 / 90 100 / 100 Weight 39.9 kg 49.4 kg Intake: IV 450 / 450 350 / 350 100 / 100 Maxipime Inj 2,000 MG In NS Inj 200 / 200 200 / 200 100 / 100 100 ML @ 200 mls/hr IV.SIG Q8H JERRY Rx#:[id number] Levaquin 750 mg Premix Inj 150 150 / 150 ML @ 100 mls/hr IV.SIG Q24H JERRY Rx#:[id number] Oral 240 / 240 Output: Urine 1400 / 1400 500 / 500 Other: Date of Last Bowel Movement 02/07/18 02/07/18 Narrative: GENERAL: Severely cachectic malnourished , sitting up in bed in tripod position due to shortness of breath. In moderate to severe distress SKIN: Warm and dry. HEART: Tachycardic with no appreciable murmurs. LUNGS: Air entry markedly diminished bilaterally with end-expiratory wheezing. Few bilateral basilar crackles ABDOMEN: Abdomen soft nontender EXTREMITIES: No LE edema. 2+ pedal pulses. NEURO: Awake and alert. Muscle strength appears normal. Cachectic. Follows commands Results - Labs CBC & Chem 7: 02/10/18 04:15 02/10/18 04:15 Microbiology 02/08/18 13:27 Blood - Peripheral Aerobic Blood Culture - Preliminary No growth in 3 days 02/08/18 13:27 Blood - Peripheral Anaerobic Blood Culture - Preliminary No growth in 3 days 02/08/18 13:27 Blood - Peripheral Aerobic Blood Culture - Preliminary No growth in 3 days 02/08/18 13:27 Blood - Peripheral Anaerobic Blood Culture - Preliminary No growth in 3 days 02/10/18 18:40 Sputum - Expectorated Sputum Gram Stain - Final Assessment and Plan - Plan COPD EXACERBATION CHF RESP. FAILURE ON O2 HIV INFECTION PLAN O2 NEEDED ANTIBX BRONCHODILATOR THERAPY
[2018-02-11] MEDS: Enoxaparin Inj 40 MG/0.4 ML Syringe SQ SCH (17:22)
[2018-02-11] MEDS: Montelukast 10 MG Tablet PO SCH (17:22)
--- NOTE | 2018-02-11 18:27 | P.PNIM ---
Subjective Interval history: feeling better, breathing is improving. Physical Exam Vital signs: Last Vital Signs Temp 98.1 F 02/11/18 16:00 Pulse 88 02/11/18 16:00 Resp 18 02/11/18 16:00 BP 103/58 L 02/11/18 16:00 Pulse Ox 99 02/11/18 16:00 Intake & Output 02/09/18 02/10/18 02/11/18 02/12/18 06:59 06:59 06:59 06:59 Intake Total 1310 / 1310 350 / 350 1040 / 1040 1070 / 1070 Output Total 400 / 400 1500 / 1500 1900 / 1900 1000 / 1000 Balance 910 / 910 -1150 / -1150 -860 / -860 70 / 70 Weight 49 kg 49.4 kg Narrative: GENERAL: cachectic, not in acute distress. NECK:no JVD CARDIOVASCULAR: Regular rate and rhythm without murmurs, gallops, or rubs. RESPIRATORY: Diminished air entry.No wheezes, rales, or rhonchi. GASTROINTESTINAL: Abdomen soft, non-tender, nondistended. Normal active bowel sounds MUSCULOSKELETAL: Extremities without clubbing, cyanosis, or edema. NEURO: Alert & Oriented x4 to person, place, time, situation. Moves all ext x4 Results Labs CBC & Chem 7: 02/10/18 04:15 02/10/18 04:15 Labs: Microbiology 02/08/18 13:27 Blood - Peripheral Aerobic Blood Culture - Preliminary No growth in 3 days 02/08/18 13:27 Blood - Peripheral Anaerobic Blood Culture - Preliminary No growth in 3 days 02/08/18 13:27 Blood - Peripheral Aerobic Blood Culture - Preliminary No growth in 3 days 02/08/18 13:27 Blood - Peripheral Anaerobic Blood Culture - Preliminary No growth in 3 days 02/10/18 18:40 Sputum - Expectorated Sputum Gram Stain - Final Assessment and Plan Plan Acute hypercapnic/hypoxic respiratory failure--resolved Acute COPD exacerbation,Severe emphysema Left upper lobe pneumonia -sputum and blood cultures, flu panel, urine strep/legionella negative. -Check induced sputum for PCP, check LDH -CD4 cell count is pending at this time - MAC/PCP prophylaxis depending on CD4 counts. -BiPAP at night -DuoNeb every 4 hours scheduled and as needed -Repeat sputum culture with PCP staining -Continue IV steroids Solu-Medrol 40 mg every 8 hours -Continue Symbicort , Spiriva - IV Cefepime and Levaquin appreciate pulmonary f/up. Severe cardiomyopathy ejection fraction 15-20% -No evidence of decompensated heart failure at this time -continue Aldactone 25 twice daily, lisinopril 2.5 mg daily, Coreg 3.125mg bid. PROPH: -Bilateral lower extremity SCDs. Lovenox Code Status: Full Progress Note: Quality VTE Deep Vein Thrombosis/Pulmonary Embolism Present on Admission: No
[2018-02-12] MEDS: MethylPREDNISolone Sod Succinate Inj 40 MG/ML Vial IV.PUSH SCH ×3 (00:16→12:50)
[2018-02-12] MEDS: Chlorhexidine Gluconate 2% 1 Pack (2 Cloths) TOPICAL SCH (04:18)
[2018-02-12] MEDS: Nystatin Liq 500,000 UNIT/5 ML UDC SWISH-SWAL SCH ×4 (08:51→22:12)
[2018-02-12] MEDS: Famotidine PF Inj 20 MG/2 ML Vial IV.PUSH SCH ×2 (08:51→22:13)
[2018-02-12] MEDS: Lisinopril 5 MG Tablet PO SCH (08:51)
[2018-02-12] MEDS: Spironolactone 25 MG Tablet PO SCH ×2 (08:52→17:45)
[2018-02-12] MEDS: Senna/Docusate Sodium 8.6/50 MG Tablet PO SCH ×2 (08:52→22:11)
[2018-02-12] MEDS: Tiotropium Bromide 18 MCG/ACT Inhaler INH SCH (08:58)
[2018-02-12] MEDS: Budesonide-Formoterol 160/4.5 MCG 6 GM Inhaler INH SCH ×2 (08:58→22:14)
--- NOTE | 2018-02-12 15:58 | P.PN ---
Subjective Interval history: ALERT SITTING AT SIDE OF BED APPETITE GOOD Physical Exam Vital signs: Vital Signs 02/11/18 16:00 02/11/18 19:52 02/11/18 20:00 Temperature 98.1 F 97.1 F L Pulse Rate 98 H 98 H 98 H Respiratory Rate 18 20 18 Blood Pressure 103/58 L 141/76 H Pulse Oximetry 99 94 L 02/11/18 23:39 02/12/18 00:00 02/12/18 00:53 Temperature 97.9 F Pulse Rate 98 H 104 H 79 Respiratory Rate 22 18 Blood Pressure 117/60 Pulse Oximetry 100 02/12/18 03:38 02/12/18 04:00 02/12/18 08:00 Temperature 97.7 F 97.7 F Pulse Rate 89 88 76 Respiratory Rate 24 18 20 Blood Pressure 113/73 125/72 Pulse Oximetry 99 100 02/12/18 08:18 02/12/18 09:00 02/12/18 12:00 Temperature 97.9 F Pulse Rate 91 H 77 107 H Respiratory Rate 18 20 Blood Pressure 117/60 Pulse Oximetry 99 100 02/12/18 12:38 02/12/18 15:45 Temperature Pulse Rate 94 H 94 H Respiratory Rate 18 18 Blood Pressure Pulse Oximetry 100 Intake & Output 02/11/18 02/12/18 02/12/18 18:59 06:59 18:59 Intake Total 1070 / 1070 340 / 340 100 / 100 Output Total 1000 / 1000 375 / 375 Balance 70 / 70 -35 / -35 100 / 100 Weight 49.4 kg Intake: IV 350 / 350 100 / 100 100 / 100 Maxipime Inj 2,000 MG In NS Inj 200 / 200 100 / 100 100 / 100 100 ML @ 200 mls/hr IV.SIG Q8H JERRY Rx#:[id number] Levaquin 750 mg Premix Inj 150 150 / 150 ML @ 100 mls/hr IV.SIG Q24H JERRY Rx#:[id number] Oral 720 / 720 240 / 240 Output: Urine 1000 / 1000 375 / 375 Other: Date of Last Bowel Movement 02/07/18 Narrative: GENERAL: cachectic, not in acute distress. NECK:no JVD CARDIOVASCULAR: Regular rate and rhythm without murmurs, gallops, or rubs. RESPIRATORY: Diminished air entry.No wheezes, rales, or rhonchi. GASTROINTESTINAL: Abdomen soft, non-tender, nondistended. Normal active bowel sounds MUSCULOSKELETAL: Extremities without clubbing, cyanosis, or edema. NEURO: Alert & Oriented x4 to person, place, time, situation. Moves all ext x4 Results - Labs CBC & Chem 7: 02/10/18 04:15 02/10/18 04:15 Laboratory Results - last 24 hr 02/09/18 05:29 Absolute Lymphocytes 359 L % CD3 Cells 47 L Absolute CD3 Count 170 L % CD3-/CD16+/CD56+ 6 Abs CD3-/CD16+/CD56+ 23 L % CD4 Cells 15 L Absolute CD4 Count 52 L T-Help/Suppress Ratio 0.40 L % CD8 Cells 35 Absolute CD8 Count 124 L % CD19 Cells 42 H Absolute CD19 Count 153 Microbiology 02/08/18 13:27 Blood - Peripheral Aerobic Blood Culture - Preliminary No growth in 4 days 02/08/18 13:27 Blood - Peripheral Anaerobic Blood Culture - Preliminary No growth in 4 days 02/08/18 13:27 Blood - Peripheral Aerobic Blood Culture - Preliminary No growth in 4 days 02/08/18 13:27 Blood - Peripheral Anaerobic Blood Culture - Preliminary No growth in 4 days 02/10/18 18:40 Sputum - Expectorated Sputum Gram Stain - Final 02/10/18 18:40 Sputum - Expectorated Sputum Sputum Culture - Final Heavy growth normal respiratory barb Assessment and Plan - Plan COPD EXACERBATION CHF RESP. FAILURE ON O2 HIV INFECTION PLAN O2 NEEDED ANTIBX BRONCHODILATOR THERAPY INCREASE ACTIVITY
--- NOTE | 2018-02-12 17:29 | P.PNIM ---
Subjective Interval history: breathing is improving. still coughing but less. Physical Exam Vital signs: Last Vital Signs Temp 97.9 F 02/12/18 12:00 Pulse 94 H 02/12/18 15:45 Resp 18 02/12/18 15:45 BP 117/60 02/12/18 12:00 Pulse Ox 100 02/12/18 15:45 Intake & Output 02/10/18 02/11/18 02/12/18 02/13/18 06:59 06:59 06:59 06:59 Intake Total 350 / 350 1040 / 1040 1410 / 1410 100 / 100 Output Total 1500 / 1500 1900 / 1900 1375 / 1375 Balance -1150 / -1150 -860 / -860 35 / 35 100 / 100 Weight 49.4 kg 49.4 kg Narrative: GENERAL: cachectic, not in acute distress. NECK:no JVD CARDIOVASCULAR: Regular rate and rhythm without murmurs, gallops, or rubs. RESPIRATORY: Diminished air entry.No wheezes, rales, or rhonchi. GASTROINTESTINAL: Abdomen soft, non-tender, nondistended. Normal active bowel sounds MUSCULOSKELETAL: Extremities without clubbing, cyanosis, or edema. NEURO: Alert & Oriented x4 to person, place, time, situation. Moves all ext x4 Results Labs CBC & Chem 7: 02/10/18 04:15 02/10/18 04:15 Labs: Microbiology 02/08/18 13:27 Blood - Peripheral Aerobic Blood Culture - Preliminary No growth in 4 days 02/08/18 13:27 Blood - Peripheral Anaerobic Blood Culture - Preliminary No growth in 4 days 02/08/18 13:27 Blood - Peripheral Aerobic Blood Culture - Preliminary No growth in 4 days 02/08/18 13:27 Blood - Peripheral Anaerobic Blood Culture - Preliminary No growth in 4 days 02/10/18 18:40 Sputum - Expectorated Sputum Gram Stain - Final 02/10/18 18:40 Sputum - Expectorated Sputum Sputum Culture - Final Heavy growth normal respiratory barb Assessment and Plan Plan Acute hypercapnic/hypoxic respiratory failure--resolved Acute COPD exacerbation,Severe emphysema Left upper lobe pneumonia -sputum and blood cultures, flu panel, urine strep/legionella negative. -Check induced sputum for PCP, check LDH -CD4 cell count is pending at this time - MAC/PCP prophylaxis depending on CD4 counts. -BiPAP at night -DuoNeb every 4 hours scheduled and as needed -Repeat sputum culture with PCP staining -switch to oral Prednisone -Continue Symbicort , Spiriva - IV Cefepime and Levaquin appreciate pulmonary f/up. Severe cardiomyopathy ejection fraction 15-20% -No evidence of decompensated heart failure at this time -continue Aldactone 25 twice daily, lisinopril 2.5 mg daily, Coreg 3.125mg bid. HIV/AIDS-patient not on any HAART,never been he says. He will like to follow up on this. CD4 52 this admission, viral load pending. start on PCP and MAC prophylaxis. -will use Dapsone for PCP prophylaxis instead of Bactrim given risk for hyperkalemia now that he is on both Aldactone and Lisinopril. PROPH: -Bilateral lower extremity SCDs. Lovenox Code Status: Full Progress Note: Quality VTE Deep Vein Thrombosis/Pulmonary Embolism Present on Admission: No
[2018-02-12] MEDS: Enoxaparin Inj 40 MG/0.4 ML Syringe SQ SCH (17:46)
[2018-02-12] MEDS: Montelukast 10 MG Tablet PO SCH (17:46)
[2018-02-13] MEDS: Chlorhexidine Gluconate 2% 1 Pack (2 Cloths) TOPICAL SCH (03:27)
[2018-02-13] MEDS: Nystatin Liq 500,000 UNIT/5 ML UDC SWISH-SWAL SCH ×3 (08:22→17:41)
[2018-02-13] MEDS: Spironolactone 25 MG Tablet PO SCH ×2 (08:22→17:41)
[2018-02-13] MEDS: Famotidine PF Inj 20 MG/2 ML Vial IV.PUSH SCH (08:23)
[2018-02-13] MEDS: Senna/Docusate Sodium 8.6/50 MG Tablet PO SCH (08:24)
[2018-02-13] MEDS: Budesonide-Formoterol 160/4.5 MCG 6 GM Inhaler INH SCH (08:28)
[2018-02-13] MEDS: Lisinopril 5 MG Tablet PO SCH (08:29)
[2018-02-13] MEDS ORDERED: predniSONE 20 MG Tablet PO SCH (09:00)
[2018-02-13] MEDS: Tiotropium Bromide 18 MCG/ACT Inhaler INH SCH (12:35)
[2018-02-13 12:47] VITALS: BP 102/61; RESP 18; TEMP 97.8
[2018-02-13 16:06] VITALS: O2SAT 98
--- NOTE | 2018-02-13 16:07 | P.DS ---
DS: Providers Date of admission: 02/08/18 16:57 Primary care physician: No Primary Care Physician Consults: 02/09/18 19:39 Consult to [facility] Stat Consulting Provider: Miriam Bryson For STAT consult, spoke directly to:: Dr Garrido Reason for Consultation: Resp distress Dr Garrido already has evaluated pt no need to page Notified:: Physician Spoke with:: dr bryson verified dr to dr Date Notified:: 02/09/18 Time Notified:: 20:32 Ordering Provider: ULISSES 02/10/18 08:21 Consult to Pulmonology Routine Consulting Provider: Joe Diaz Preferred Rivet Tester:: Joe Diaz Reason for Consultation: COPD exacerbation Notified:: Service Spoke with:: JAMIE Date Notified:: 02/10/18 Time Notified:: 08:26 Ordering Provider: CHARIS 02/10/18 08:26 Consult to Hospitalist Routine Consulting Provider: Saleem Mojica Patient known to:: Saleem Mojica Reason for Consultation: COPD exacerbation Notified:: Service Spoke with:: SHAMEKA Date Notified:: 02/10/18 Time Notified:: 08:29 Comments:: Ordering Provider: CHARIS Brief History from admission: 58 year old male with history of COPD, HIV, tobacco abuse, and chronic back pain presenting with worsening shortness of breath and productive cough for the past 10-12 days. He reports using his nebulizer at least three times a day during this time with no improvement. His sputum is thick and yellow and he denies hemoptysis. He endorses some chills and a 10 lb weight loss in the last two weeks which he attributes to decreased appetite. He endorses a fever with Tmax 101. He denies abdominal pain, nausea, vomiting, diarrhea, edema, palpitations, syncope, or dysuria. He endorses left- sided chest pain around his lateral ribs that he attributes to coughing so much. He has not received a flu vaccine. He was intubated in 2014 for respiratory failure and pneumonia. The patient reports he has not been on any medication for HIV for at least 10 years. He is unaware of why he hasn't been on any medications. He has no idea what his last CD4 count was. Review of the EMR reveals patient with history of severe cardiomyopathy with EF 15-20% back in 2016. He had been on a beta dory and an ciaran-inhibitor but somewhere along the way these medications fell off his list. He follows with a PCP in [place] but lives in [place]. PMH: COPD, tobacco abuse, cardiomyopathy, HIV Surgical Hx: none Family Hx: adopted, doesn't know family history Social Hx: lives with six other people in an apartment, smokes 1PPD for at least 40 years, quit drinking about 6 months ago and states prior was drinking heavily, smokes marijuana 5-6 x/week DS: Summary ISSUES ADDRESSED DURING THIS HOSPITALIZATION 1.Acute hypercapnic/hypoxic respiratory failure due to acute COPD exacerbation, Severe emphysema complicated by Left upper lobe pneumonia. Patient was initially admitted to the medical floor however,started on NEBS, Methyl prednisone and supplemental Oxygen and antibiotics. His condition worsened, he developed hypercarbic respiratory failure requiring transfer to the ICU.In ICU patient was placed on BIPAP, started on Levaquin and Cefepime the course of which he has completed. Work up including sputum and blood cultures, flu panel, urine strep/legionella were all negative. Pulmonary consultation was done as well to guide care. He responded appropriately to BIPAP and was weaned of to Oxygen by nasal canula. He was transferred back to the medical floor after 2 days stay in ICU. He continued to do well in the medical floor, Oxygen was successfully weaned off. A walk test was done on day of discharge and his ambulatory saturations were above 90%. He should continue his usual home Symbicort , Spiriva and albuterol. He should complete the course of Prednisone as prescribed. Patient will need to follow up with a barrel bridge assembler, PCP should give a referral. 2.H/o Severe cardiomyopathy ejection fraction 15-20% No evidence of decompensated heart failure at this time.He was started on Aldactone 25daily, lisinopril 2.5 mg daily,Coreg3.125mg bid. He will need a referral to a formulation technician for continued monitoring of his cardiomyopathy. 3.HIV/AIDS-patient not on any HAART,never been he says. He will like to follow up on this. CD4 52 this admission, viral load pending. -will use Dapsone for PCP prophylaxis instead of Bactrim given risk for hyperkalemia now that he is on both Aldactone and Lisinopril. -He was started on Azithromycin 1200 mg weekly for PCP prophylaxis. -Patient should follow up with HIV clinic, piano case maker has given patient contacts to HIV clinic and patient will follow up to be considered for HAART. Time Spent with Patient Total time spent providing and/or coordinating discharge services: Quality: VTE Deep Vein Thrombosis/Pulmonary Embolism Present on Admission: No Results Impressions ITS Impressions Chest CTA 02/08/18 14:32 CONCLUSION: 1. No evidence of pulmonary embolism. 2. Minimal focal infiltrate within the lingula of the left upper lobe consistent with possible developing pneumonia. Clinical correlation is recommended. 3. Extensive emphysematous changes throughout both lungs. 4. Coronary artery calcifications. Chest X-Ray 02/10/18 06:00 CONCLUSION: The lungs are hyperinflated consistent with COPD. No acute infiltrate or effusion. Discharge Plan Discharge Disposition Patient Disposition: Discharge Home Discharge Condition Condition: Fair Discharge Order Discharge Orders: Discharge Order (Routine); Ordered 02/13/18 Ordered By: Bernadette Knox Discharge Details Anticipated Discharge Date: 02/13/18 Physicians Team Primary Care Provider: Primary Care Celsa Goldstein Attending Provider: Bernadette Knox Other Providers: Miriam Bryson ; Joe Diaz Rxs /Orders / Referrals /Forms Prescriptions: New nystatin 100,000 unit/mL Suspension 5 ml SWISH-SWAL QID Qty: 100 RF: 0 prednisone 20 mg Tablet 40 mg PO DAILY Qty: 2 RF: 0 aspirin 81 mg Tablet,Delayed Release (Dr/Ec) 81 mg PO DAILY Qty: 30 RF: 0 spironolactone [Aldactone] 25 mg Tablet 25 mg PO DAILY Qty: 30 RF: 0 carvedilol [Coreg] 3.125 mg Tablet 3.125 mg PO BID Qty: 60 RF: 0 dapsone 100 mg Tablet 100 mg PO DAILY Qty: 30 RF: 0 lisinopril 5 mg Tablet 2.5 mg PO DAILY Qty: 30 RF: 0 azithromycin 600 mg Tablet 1,200 mg PO Q7D Qty: 30 RF: 0 Continue baclofen 20 mg Tablet 20 mg PO DAILY RF: 0 montelukast 10 mg Tablet 10 mg PO QPM RF: 0 albuterol sulfate [Ventolin HFA] 90 mcg/actuation Hfa Aerosol Inhaler 2 puff INHALATION Q4-6H PRN (Reason: Shortness Of Breath) RF: 0 budesonide-formoterol [Symbicort] 160-4.5 mcg/actuation Hfa Aerosol Inhaler 2 puff INHALATION BID RF: 0 hydrocodone-acetaminophen [[place]] 5-325 mg Tablet 1 tab PO BID PRN (Reason: Pain) RF: 0 Discontinued amoxicillin 500 mg Capsule 500 mg PO TID RF: 0 Referrals: Primary Care Celsa Goldstein [Primary Care Provider] - See Instructions Discharge Instructions Additional Instructions: You presented to the hospital because of shortness of breath and was found to have a pneumonia which led to exacerbation of your COPD. You were started on antibiotics to which you responded appropriately. You also received treatment with Nebulization, Prednisone and Oxygen. Your condition improved. Complete the dose of Prednisone as prescribed. For your weak heart, you have been started on several medication including Carvedilol, Spironolactone and Lisinopril, take these medication as prescribed. You were also started on Prophylactic medication for your immunity, take as prescribed. Discharge Interventions Interventions: Discharge Planning - Case Management Last Done: 02/10/18 14:33 Status ED Status: Left Department
[2018-02-13] MEDS: Enoxaparin Inj 40 MG/0.4 ML Syringe SQ SCH (17:41)
[2018-02-13] MEDS: Montelukast 10 MG Tablet PO SCH (17:46)
[2018-02-13 18:46] VITALS: PULSE 82
== END 2018-02-13 18:45 | disposition home or self-care (01) ==
LOC: NEPE 12:36 → OBSVTOIN 16:32 → NEDA 16:33 → INTOOBSV 16:33 → NEDA 17:57 → N07 18:02 → HIMC 02-09 17:30 → N04 02-10 22:05
PROVIDERS: ADMIT Hospitalist; ATTEND Hospitalist